=== PATIENT | female | born 1965 | race Caucasian/White ===

== ENCOUNTER → 2017-08-29 07:30 | Outpatient (CLI) | payer OTHER, SELFPAY ==
[2017-08-29 08:20] LABS: Color, Urine Yellow (Yellow); Glucose, Dipstick Normal (Normal); Ketone-Dipstick 5 mg/dl (Negative); Leukocyte Esterase-Dipstick 25 /ul (Negative); Nitrite-Dipstick Negative (Negative); Occult Blood-Urine 10 /ul (Negative); Protein-Dipstick 30 mg/dl (Negative); Specific Gravity, Urine 1.025 (1.002-1.030); Urine Bilirubin Dipstick Negative (Negative); Urine Clarity Sl. Cloudy (Clear); Urine Urobilinogen Normal (Normal)
[2017-08-29 08:30] LABS: Absolute Lymphocyte Count 1.68 X10^3/ul (0.83-4.51); Absolute Neutrophil Count 3.7 X10^3/uL (2.0-7.7); Basophil# 0.01 X10^3/uL; Basophil% 0.2 % (0-1); Eosinophil# 0.22 X10^3/uL; Eosinophils% 3.5 % (0-5); Hemoglobin 14.9 g/dl (12.0-15.0); Lymphocyte # 1.68 X10^3/ul (4.0); Lymphocyte % 27.1 % (19-41); Mean Corp Hgb Conc 33.1 g/gl (32-36); Mean Corpuscular Volume 87.7 fL (81-99); Monocyte# 0.54 X10^3/uL; Monocyte% 8.7 % (0-10); Neutrophil # 3.73 X10^3/uL (2.7-7.7); Neutrophil % 60.2 % (47-70); Platelet Count 207 K/mm3 (150-450); RBC Distribution Width CV 13.1 % (11.6-14.6); RBC Distribution Width SD 41.8 fl (35.1-43.9); Red Blood Count 5.13 M/mm3 (4.2-5.4); White Blood Count 6.2 K/mm3 (4.4-11.0)
[2017-08-29 08:35] LABS: Bacteria 2+ /hpf (None Seen); Red Blood Cells-Urine 0-5 SEEN /hpf (0-5); Squamous Epithelial Cells - UA 0-5 SEEN /hpf (5-10); White Blood Cells 0-5 SEEN /hpf (0-5)
[2017-08-29 08:36] LABS: Mucous, Urine RARE /hpf (<or=2+)
[2017-08-29 08:40] LABS: POSITIVE COUNT NO; POSITIVE DIFFERENTIAL NO; POSITIVE MORPHOLOGY NO
[2017-08-29 08:42] LABS: Microalbumin,Random Urine 27.9 mg/L (NO RANGE EST.); Microalbumin:Creatinine Ratio 10.4 mg/g CRE (<30 mg/g CRE)
[2017-08-29 08:54] LABS: Hemoglobin A1c 5.9 % (4.2-6.3)
[2017-08-29 09:00] LABS: ALB/GLOB Ratio 0.9 RATIO (0.9-2.4); AST(SGOT) 63 U/L (15-37); Alanine Aminotransfer ALT/SGPT 117 U/L (13-56); Albumin, Serum 3.8 g/dL (3.2-5.0); Alkaline Phosphatase 99 U/L (45-117); Anion Gap 7 (5-15); BUN 17 mg/dL (7-18); BUN/Creat Ratio 21.2 RATIO (10-20); Bilirubin, Direct 0.12 mg/dL (0.00-0.30); Calcium,Total 8.4 mg/dL (8.5-10.1); Chloride 104 mmol/L (98-107); Cholesterol 218 mg/dL (200); EST Glomerular Filtration Rate 79 mL/min (>60); Est Glom Filt Rate - Afr Amer 96 mL/min (>60); Globulin 4.3 g/dL (2.2-4.2); Glucose 96 mg/dL (74-106); High Density Lipoprotein 43 mg/dL; Protein, Total 8.1 g/dL (6.4-8.2); Sodium Level 137 mmol/L (136-145); Thyroid Stim Hormone (TSH) 4.32 uIU/mL (0.358-3.74); Triglycerides 202 mg/dL; Very Low Density Lipoprotein 40 mg/dL (5-40)
[2017-08-30 07:59] LABS: AFP, Tumor Marker 1.8 ng/mL (0.0-8.3)
[2017-08-30 10:38] LABS: Vitamin D,25 Hydroxy 23.3 ng/mL (19.95-100.01)
== END ==
PROVIDERS: Family Provider Internal Medicine; PCP Internal Medicine; Visit Provider Internal Medicine
DX: I10 Essential (primary) hypertension (principal); E78.2 Mixed hyperlipidemia; K76.89 Other specified diseases of liver; E55.9 Vitamin D deficiency, unspecified
CPT/HCPCS: 36415; 80053; 80061; 81001; 82043; 82105; 82248; 82306; 82570; 83036; 84443; 85025

== ENCOUNTER → 2017-08-31 08:28 | Outpatient (CLI) | payer OTHER, SELFPAY ==
[2017-09-01 06:45] LABS: Ferritin 294 ng/mL (8-252); GGTP 53 U/L (5-55)
[2017-09-01 14:07] LABS: Ceruloplasmin 29.3 mg/dL (19.0-39.0); HEPATITIS B SURFACE AG Negative (Negative); Hepatitis A AB, Total Negative (Negative); Hepatitis A IgM Antibody Negative (Negative); Hepatitis B Core AB IgM Negative (Negative); Hepatitis B Core Ab Total Negative (Negative); Hepatitis C Ab <0.1 s/co ratio (0.0-0.9)
[2017-09-01 14:14] LABS: Anti-Smooth Muscle ABS 8 Units (0-19); CMV Acute Antibody IgM < 30.0 AU/mL (0.0-29.9); Hep B Surface Antibodies Reactive (.); Lipoprotein A 33 nmol/L (<75); Transferrin 236 mg/dL (200-370)
[2017-09-03 08:46] LABS: ANTINUCLEAR ANTIBODIES DIRECT Negative (Negative); Anti-Mitochondrial AB <20.0 Units (0.0-20.0)
== END ==
PROVIDERS: Family Provider Internal Medicine; PCP Internal Medicine; Visit Provider Internal Medicine
DX: R73.02 Impaired glucose tolerance (oral) (principal); R31.29 Other microscopic hematuria; E78.2 Mixed hyperlipidemia; R94.6 Abnormal results of thyroid function studies; R74.8 Abnormal levels of other serum enzymes
CPT/HCPCS: 36415; 82390; 82728; 82977; 83516; 83695; 84466; 86038; 86645; 86704; 86705; 86706; 86708; 86709; 86803; 87340

== ENCOUNTER → 2017-12-27 15:16 | Outpatient (CLI) | payer OTHER, SELFPAY ==
[2017-12-27 15:26] LABS: Red Blood Cells-Urine 0 SEEN /hpf (0-5)
[2017-12-27 17:09] LABS: Color, Urine Yellow (Yellow); Glucose, Dipstick Normal (Normal); Ketone-Dipstick Negative (Negative); Leukocyte Esterase-Dipstick Negative /ul (Negative); Nitrite-Dipstick Negative (Negative); Occult Blood-Urine Negative /ul (Negative); Protein-Dipstick Negative (Negative); Urine Clarity Clear (Clear); Urine Urobilinogen 4 mg/dl (Normal)
[2017-12-27 17:11] LABS: Urine Bilirubin Dipstick 1 mg/dL (Negative)
[2017-12-27 17:25] LABS: White Blood Cells 0-5 SEEN /hpf (0-5)
[2017-12-27 17:26] LABS: Bacteria 3+ /hpf (None Seen); Mucous, Urine 1+ /hpf (<or=2+); Squamous Epithelial Cells - UA 0-5 SEEN /hpf (5-10)
== END ==
PROVIDERS: Family Provider Internal Medicine; PCP Internal Medicine; Visit Provider Internal Medicine
DX: R31.29 Other microscopic hematuria (principal); E78.2 Mixed hyperlipidemia; R73.02 Impaired glucose tolerance (oral); R94.6 Abnormal results of thyroid function studies; R74.8 Abnormal levels of other serum enzymes
CPT/HCPCS: 81001

== ENCOUNTER → 2017-12-28 11:22 | Outpatient (CLI) | payer OTHER, SELFPAY ==
[2017-12-28 11:34] LABS: Bacteria 0 SEEN /hpf (None Seen); Mucous, Urine 0 SEEN /hpf (<or=2+); Red Blood Cells-Urine 0 SEEN /hpf (0-5); White Blood Cells 0 SEEN /hpf (0-5)
[2017-12-28 12:36] LABS: Color, Urine Straw (Yellow); Glucose, Dipstick Normal (Normal); Ketone-Dipstick Negative (Negative); Leukocyte Esterase-Dipstick Negative /ul (Negative); Nitrite-Dipstick Negative (Negative); Occult Blood-Urine Negative /ul (Negative); Protein-Dipstick Negative (Negative); Specific Gravity, Urine 1.005 (1.002-1.030); Urine Bilirubin Dipstick Negative (Negative); Urine Clarity Clear (Clear); Urine Urobilinogen Normal (Normal); Urine pH 6.5 (5.0 - 8.0)
[2017-12-28 12:55] LABS: Squamous Epithelial Cells - UA 0-5 SEEN /hpf (5-10)
[2017-12-28 13:01] LABS: Hemoglobin A1c 5.4 % (4.2-6.3)
[2017-12-28 13:17] LABS: Cholesterol 218 mg/dL (200); Ferritin 173 ng/mL (8-252); Free T3 2.6 pg/mL (2.18-3.98); GGTP 7 U/L (5-55); High Density Lipoprotein 53 mg/dL; T4 Free Direct 0.89 ng/dL (0.76-1.46); Thyroid Stim Hormone (TSH) 2.18 uIU/mL (0.358-3.74); Triglycerides 85 mg/dL; Very Low Density Lipoprotein 17 mg/dL (5-40)
[2017-12-29 12:09] LABS: HEPATITIS B SURFACE AG Negative (Negative); Hepatitis A IgM Antibody Negative (Negative); Hepatitis B Core AB IgM Negative (Negative)
[2017-12-29 13:25] LABS: Anti-Smooth Muscle ABS 7 Units (0-19); CMV Acute Antibody IgM < 30.0 AU/mL (0.0-29.9); Hep C Antibodies <0.1 s/co ratio (0.0-0.9); Transferrin 237 mg/dL (200-370)
[2017-12-30 12:07] LABS: CHOLESTEROL TOTAL 227 mg/dL (100-199); HDL-C 54 mg/dL (>39); HDL-P TOTAL 33.4 umol/L (>=30.5); SMALL LDL-P 841 nmol/L (<=527); TRIGLYCERIDES 86 mg/dL (0-149)
[2018-01-02 12:05] LABS: ANTINUCLEAR ANTIBODIES DIRECT Negative (Negative); Anti-Mitochondrial AB <20.0 Units (0.0-20.0); LDL SIZE 21.2 nm (>20.5); LDL-C 156 mg/dL (0-99); LDL-P 1868 nmol/L (<1000); LP-IR SCORE ** 29 (<=45)
== END ==
PROVIDERS: Family Provider Internal Medicine; PCP Internal Medicine; Visit Provider Internal Medicine
DX: R31.29 Other microscopic hematuria (principal); R73.02 Impaired glucose tolerance (oral); R94.6 Abnormal results of thyroid function studies; E78.2 Mixed hyperlipidemia; R74.8 Abnormal levels of other serum enzymes
CPT/HCPCS: 36415; 80061; 80074; 81001; 82728; 82977; 83036; 83516; 83704; 84439; 84443; 84466; 84481; 86038; 86645

== ENCOUNTER → 2018-01-31 15:06 | Outpatient (CLI) | payer OTHER, SELFPAY ==
[2018-01-31 16:29] LABS: AST(SGOT) 19 U/L (15-37); Alanine Aminotransfer ALT/SGPT 26 U/L (13-56); Albumin, Serum 3.7 g/dL (3.2-5.0); Alkaline Phosphatase 101 U/L (45-117); Protein, Total 7.7 g/dL (6.4-8.2)
== END ==
PROVIDERS: Family Provider Internal Medicine; PCP Internal Medicine; Visit Provider Internal Medicine
DX: R74.8 Abnormal levels of other serum enzymes (principal); R73.02 Impaired glucose tolerance (oral)
CPT/HCPCS: 36415; 80076

== ENCOUNTER → 2018-05-08 13:22 | Outpatient (CLI) | payer OTHER, SELFPAY ==
--- NOTE | 2018-05-08 13:25 | US_ITS ---
STUDY: ULTRASOUND BREAST - RIGHT REASON FOR EXAM: Female, 53 years old. Palpable lump in the right breast. TECHNIQUE: Axial and longitudinal images of the RIGHT breast were performed with a high resolution ultrasound transducer. COMPARISON: Comparison is made with prior mammogram done earlier today. FINDINGS: RIGHT Breast: The upper inner quadrant of the right breast was examined by ultrasound. There is evidence of normal fibroglandular tissue. No solid or cystic mass lesion is seen. US/Breast Limited Unilateral IMPRESSION: Unremarkable sonogram of the upper inner quadrant of the right breast. ASSESSMENT CATEGORY: BIRADS Category 2: Benign. A letter regarding these results will be sent to the patient by the facility within 30 days. Electronically Signed: Car Pizano MD at 14:29 EDT Tel [phone], Service support ,
--- NOTE | 2018-05-08 13:25 | BI_ITS ---
MAMMOGRAPHY - BILATERAL DIAGNOSTIC REASON FOR EXAM: Female, 53 years old. 2 week history of right breast lump in the upper inner quadrant. PERTINENT HISTORY: Mother with breast cancer. TECHNIQUE: Digital bilateral breast shane (3D mammographic acquisition) in the CC and MLO projections. 2-D mediolateral oblique (MLO) and craniocaudad (CC) views of both breasts were obtained. CAD: Full Field Digital Mammography with Computer Added Detection was performed. COMPARISON: Comparison is made with prior study dated August 18, 2016 and August 11, 2015. FINDINGS: Breast Composition: The breasts are heterogeneously dense, which may obscure small masses. There are no dominant masses or suspicious calcifications. No other significant abnormalities are identified. There has been no significant change since the prior study. BI/DIAG MAMM W/CAD, BILAT IMPRESSION: Stable bilateral diagnostic mammogram. With the patient's history of a palpable abnormality in the upper inner quadrant of the right breast, correlation with ultrasound is recommended. ASSESSMENT CATEGORY: BIRADS Category 0: Incomplete. Need additional imaging evaluation. A letter regarding these results will be sent to the patient by the facility within 30 days. Approximately 10% of breast cancers are not detected by mammography. A normal mammogram should not delay biopsy of a clinically suspicious abnormality. Electronically Signed: Car Pizano MD at 14:28 EDT Tel [phone], Service support ,
== END ==
PROVIDERS: Family Provider Internal Medicine; PCP Internal Medicine; Referring Provider Nurse Practitioner; Visit Provider Nurse Practitioner
DX: N63.12 Unspecified lump in the right breast, upper inner quadrant (principal)
CPT/HCPCS: 76642; 77062; 77066; G0279

== ENCOUNTER 2018-05-17 22:21 | Emergency (ER) | payer OTHER, SELFPAY ==
[2018-05-17 22:22] VITALS: BP 152/90; PULSE 78; RESP 16; TEMP 36.8; O2SAT 98; BMI 32.5
--- NOTE | 2018-05-17 22:48 | ED.DCSUM_ITS ---
- ER Visit Summary Date of Service: 05/17/18 Chief Complaint: Lip swelling History of Present Illness: The patient is a 53 F who presents with upper lip swelling. She states that she did not feel well over the past week and had flulike symptoms. Her and her were both sick at home. Yesterday she h ad swelling on the left eye. It was the lower eyelid. She got better with Benadryl. When she woke up today it was much improved. This evening she developed swelling on the left side of the upper lip. She denies any tongue swelling. She has not short of breath. She took no new medications. She has a history of swelling in the left side of her body after a cortisone shot in the shoulder last year. Physical Examination: Vital signs reviewed. HEENT exam reveals left upper lip swelling. There is no facial droop. No facial muscle weakness. She has no tongue swelling. Her heart is regular rate and rhythm without murmurs. Lungs clear to auscultation bilaterally. Abdomen is soft and nontender. Skin exam reveals no rashes or urticaria. Neurologic exam normal. Test Results: None performed Emergency Department Course and Treatment: Patient was given Solu-Medrol and Benadryl IV. She has a history of a rebound reaction to her last allergic reaction. Therefore we will observe her for multiple hours and then reassess her. Treatment Plan: [] Disposition: Pending Impression: Lip swelling This note was generated with [employer] dictation software. It may contain incorrect words, spelling, and punctuation that were not noted in review of the chart prior to signing ED Disposition - Plan for ED Patient: Chief Complaint: Allergic Reaction Referrals: Eden Woodward DO [Primary Care Provider] -
[2018-05-17] MEDS: DiphenhydrAMINE 50 MG/ML Syringe 25 MG IV (23:08)
[2018-05-17] MEDS: MethylPREDNISolone 125 MG/2 ML Vial IV (23:09)
--- NOTE | 2018-05-17 23:57 | ED.DEP ---
ED Disposition - Plan for ED Patient: Disposition: Home or Assisted Living Chief Complaint: Allergic Reaction Instructions: ED Angioedema Referrals: Eden Woodward DO [Primary Care Provider] -
[2018-05-18 00:40] VITALS: BP 160/96; PULSE 70; RESP 16; O2SAT 96
[2018-05-18 00:42] VITALS: PULSE 79; RESP 16; O2SAT 96
--- NOTE | 2018-05-18 00:43 | ED.RN ---
pt wanted to go home, stated if she has any further issues w swelling she has an epi pen and will come back to the hospital if needed. dr grier said it was ok for her to go home.
== END 2018-05-18 00:50 | disposition home or self-care (01) ==
PROVIDERS: Emergency Provider Emergency Medicine; Family Provider Internal Medicine; PCP Internal Medicine
DX: T78.40XA Allergy, unspecified, initial encounter (principal); R22.0 Localized swelling, mass and lump, head; X58.XXXA Exposure to other specified factors, initial encounter; I10 Essential (primary) hypertension; Z79.899 Other long term (current) drug therapy
CPT/HCPCS: 96374; 96375; 99283; J7030; A4216

== ENCOUNTER → 2018-11-16 09:23 | Outpatient (CLI) | payer OTHER, SELFPAY ==
[2018-09-13 09:23] VITALS: BMI 34.3
[2018-11-16 10:06] LABS: Absolute Lymphocyte Count 2.01 X10^3/ul (0.83-4.51); Absolute Neutrophil Count 3.5 X10^3/uL (2.0-7.7); Basophil# 0.01 X10^3/uL; Basophil% 0.2 % (0-1); Eosinophil# 0.21 X10^3/uL; Eosinophils% 3.4 % (0-5); Hematocrit 42.6 % (37-47); Hemoglobin 14.3 g/dl (12.0-15.0); Lymphocyte # 2.01 X10^3/ul (4.0); Lymphocyte % 32.8 % (19-41); Mean Corp Hgb Conc 33.6 g/gl (32-36); Mean Corpuscular Hgb 29.2 pg (27.0-32.0); Mean Corpuscular Volume 87.1 fL (81-99); Mean Platelet Vol. 10.1 fl (6.2-12.0); Monocyte# 0.39 X10^3/uL; Monocyte% 6.4 % (0-10); Neutrophil # 3.49 X10^3/uL (2.7-7.7); Platelet Count 214 K/mm3 (150-450); RBC Distribution Width SD 41.6 fl (35.1-43.9); Red Blood Count 4.89 M/mm3 (4.2-5.4); White Blood Count 6.1 K/mm3 (4.4-11.0)
[2018-11-16 10:08] LABS: POSITIVE COUNT NO; POSITIVE DIFFERENTIAL NO; POSITIVE MORPHOLOGY NO
[2018-11-16 10:34] LABS: AST(SGOT) 41 U/L (15-37); Alanine Aminotransfer ALT/SGPT 85 U/L (13-56); Albumin, Serum 3.9 g/dL (3.2-5.0); Alkaline Phosphatase 88 U/L (45-117); Anion Gap 5 (5-15); BUN 12 mg/dL (7-18); BUN/Creat Ratio 18.2 RATIO (10-20); Bilirubin, Direct 0.13 mg/dL (0.00-0.30); Calcium,Total 8.8 mg/dL (8.5-10.1); Chloride 107 mmol/L (98-107); Creatinine, Serum 0.66 mg/dL (0.55-1.02); EST Glomerular Filtration Rate 98 mL/min (>60); Est Glom Filt Rate - Afr Amer 119 mL/min (>60); Globulin 3.9 g/dL (2.2-4.2); Glucose 86 mg/dL (74-106); Potassium 4.3 mmol/L (3.5-5.1); Protein, Total 7.8 g/dL (6.4-8.2); Sodium Level 141 mmol/L (136-145)
[2018-11-17 16:06] LABS: CHOLESTEROL TOTAL 226 mg/dL (100-199); HDL-C 48 mg/dL (>39); HDL-P TOTAL 33.4 umol/L (>=30.5); SMALL LDL-P 1130 nmol/L (<=527); TRIGLYCERIDES 158 mg/dL (0-149)
[2018-11-19 13:27] LABS: INSULIN RESISTANCE SCORE 63 (<=45); LDL SIZE 20.6 nm (>20.5); LDL-C 146 mg/dL (0-99); LDL-P 1931 nmol/L (<1000)
== END ==
PROVIDERS: Family Provider Internal Medicine; PCP Internal Medicine; Referring Provider Internal Medicine; Visit Provider Internal Medicine
DX: R74.8 Abnormal levels of other serum enzymes (principal); R73.09 Other abnormal glucose
CPT/HCPCS: 36415; 80053; 80061; 82248; 83704; 85025

== ENCOUNTER → 2018-12-28 14:29 | Outpatient (CLI) | payer SELFPAY ==
[2018-09-13 09:23] VITALS: BMI 34.3
--- NOTE | 2018-12-28 14:34 | CT_ITS ---
STUDY: CARDIAC CALCIUM SCORING - CT CHEST REASON FOR EXAM: Female, 53 years old. Hyperlipidemia RADIATION DOSAGE (If Supplied By Facility): CTDIvol = ( 12.19 ) mGy, DLP = ( 195.04 ) mGycm TECHNIQUE: Axial non-enhanced images were acquired through the heart for the sole purpose of measuring coronary artery calcium. Individualized dose optimization techniques were used for this CT. COMPARISON: None. FINDINGS: Visualized surrounding anatomy: Fatty liver Left Main Coronary Artery: 0 Left Anterior Descending Artery: 0 Left Circumflex Artery: 0 Right Coronary Artery: 0 Total Calcium Score: 0 CT/Limited Chest CT w/CCTA IMPRESSION: A Calcium Score of 0 places the patient in the approximate 25th percentile, based on the BERGER data calculator. Please go to: [email or web address].[email or web address] , for a description of the calculator. Electronically Signed: Antolin Silva, at 15:14 EDT Tel , Service support ,
[2018-12-28 14:43] VITALS: BP 148/93; PULSE 64; RESP 16; O2SAT 98; BMI 33.5
--- NOTE | 2018-12-31 09:05 | CA.SCORE ---
Calcium Scoring Date of Study:: 12/28/18 Coronary Calcium Scoring: High-resolution Computed Tomographic imaging of the chest was performed on [ ], with particular attention paid to the coronary arteries. Images from the examination were analyzed for the presence and extent of coronary artery calcification , using coronary calcium quantification software. The patient tolerated the procedure well and there were no complications. The results of the coronary calcification analysis are provided below. - Findings Left Main (LM): 0 Left Anterior Descending (LAD): 0 Left Circumflex (LCX): 0 Right Coronary Artery (RCA): 0 Total Agatston Score: 0 Percentile Rankin - Conclusion Calcium Scoring Interpretation: Calcium Score Interpretation 0 No identifiable atherosclerotic plaque. Very low cardiovascular disease risk. <5% chance of presence coronary artery disease A Negative Examination 1-10 Minimal Plaque burden. Significant coronary artery disease very unlikely. 11-100 Mild plaque burden. Likely mild or minimal coronary atherosclerosis. 101-400 Moderate plaque burden Moderate non-obstructive coronary artery disease highly likely. Over 400 Extensive plaque burden. High likelihood of at least one significant coronary stenosis (>50% diameter) Conclusions: Patient has a calcium score of 0 which is suggestive of very low cardiovascular disease risk (less than 5% chance of presence of significant coronary artery disease) Recommendations: Adoption and maintenance of a healthy lifestyle is recommended for all people. Tobacco use should be avoided. However note that these are general recommendations only, and as with all such matters, the personal physician should be consulted regarding recommendations appropriate for the individual
== END ==
PROVIDERS: Family Provider Internal Medicine; PCP Internal Medicine; Referring Provider Internal Medicine; Visit Provider Internal Medicine
DX: Z13.9 Encounter for screening, unspecified (principal); Z82.49 Family history of ischemic heart disease and other diseases of the circulatory system
CPT/HCPCS: 75571; 76380

== ENCOUNTER → 2019-03-04 09:57 | Outpatient (CLI) | payer OTHER, SELFPAY ==
[2018-12-28 14:43] VITALS: BMI 33.5
[2019-03-04 11:18] LABS: Hemoglobin A1c 5.5 % (4.2-6.3)
[2019-03-04 11:49] LABS: AST(SGOT) 32 U/L (15-37); Alanine Aminotransfer ALT/SGPT 77 U/L (13-56); Albumin, Serum 3.6 g/dL (3.2-5.0); Alkaline Phosphatase 91 U/L (45-117); Globulin 3.8 g/dL (2.2-4.2); Protein, Total 7.4 g/dL (6.4-8.2)
[2019-03-05 22:09] LABS: CHOLESTEROL TOTAL 162 mg/dL (100-199); HDL-C 45 mg/dL (>39); HDL-P TOTAL 38.3 umol/L (>=30.5); SMALL LDL-P 658 nmol/L (<=527); TRIGLYCERIDES 195 mg/dL (0-149)
[2019-03-06 17:01] LABS: INSULIN RESISTANCE SCORE 70 (<=45); LDL SIZE 20.1 nm (>20.5); LDL-C 78 mg/dL (0-99); LDL-P 964 nmol/L (<1000)
== END ==
PROVIDERS: Family Provider Internal Medicine; PCP Internal Medicine; Referring Provider Internal Medicine; Visit Provider Internal Medicine
DX: E78.2 Mixed hyperlipidemia (principal); R73.09 Other abnormal glucose
CPT/HCPCS: 36415; 80061; 80076; 83036; 83704

== ENCOUNTER → 2019-06-15 14:29 | Outpatient (CLI) | payer OTHER, SELFPAY ==
[2019-06-15 11:41] VITALS: BMI 33.5
[2019-06-15 14:30] LABS: Mucous, Urine 0 SEEN /hpf (<or=2+)
[2019-06-15 14:50] LABS: Color, Urine Yellow (Yellow); Glucose, Dipstick Normal (Normal); Ketone-Dipstick Negative (Negative); Leukocyte Esterase-Dipstick 25 /ul (Negative); Nitrite-Dipstick Negative (Negative); Occult Blood-Urine 250 /ul (Negative); Protein-Dipstick 100 mg/dl (Negative); Urine Bilirubin Dipstick Negative (Negative); Urine Clarity Cloudy (Clear); Urine Urobilinogen Normal (Normal)
[2019-06-15 15:02] LABS: Bacteria 2+ /hpf (None Seen); Red Blood Cells-Urine 25-50 SEEN /hpf (0-5); Squamous Epithelial Cells - UA 0-5 SEEN /hpf (5-10); White Blood Cells 0-5 SEEN /hpf (0-5); Yeast-Urine 2+ /hpf (None Seen)
== END ==
PROVIDERS: Family Provider Internal Medicine; PCP Internal Medicine; Visit Provider Physician Assistant
DX: R31.9 Hematuria, unspecified (principal)
CPT/HCPCS: 81001; 87086; 87088; 87186

== ENCOUNTER → 2019-08-14 13:02 | Outpatient (CLI) | payer OTHER, SELFPAY ==
[2019-06-15 11:41] VITALS: BMI 33.5
--- NOTE | 2019-08-14 12:50 | CYSPIN_PTH ---
PATIENT: LING LLOYD LOC: [facility] U#:[id number] AGE/SX: 60/F ROOM: RE08/14/[address]: Dr. Lashay Mcfarlane MD : 1965 BED: DIS: SPEC #: [id number] RECD: 08/14/19 13:54 STATUS: LILI REJulia #: [id number] BRUNILDA: 08/14/19 12:[address]: Lashay Mcfarlane DEPT: CYTOLOGY RECD BY: Zain Driver ENTERED: 08/14/19 13:54 SP TYPE: CYSPIN FL OTHR DR: Dr. Eden Woodward, Tissues: Urine Procedures: Pap Stain (control) Special Stain Group II Cytospin Fluid HEADER OPERATION: Not noted PRE-OP DIAGNOSIS: Gross hematuria TISSUE SUBMITTED: Urine for cytology DIAGNOSIS CYTOLOGY Urine for cytology (cytospin): A few clusters of atypical urothelial cells noted, favor reactive. Numerous organisms consistent with bacteria noted. Acute inflammation. SJ:shanell 08/15/19 COMMENT Correlation with clinical findings and appropriate follow up are necessary. Case has been reviewed in consultation with Dr. Esquivel who concurs with the above diagnosis. IDC:AM CYTOLOGY STUDY Slides are reviewed. CYTOLOGY GROSS Received is 50 ml of gold cloudy fluid labeled with the patient's name and and designated per the requisition as urine. Submitted for cytology preparation. / shanell 08/14/19 TC:2 CPT: 01730
[2019-08-14 13:19] LABS: Cytology, Body Fluid / CSF SEE PATHOLOGY REPORT
== END ==
PROVIDERS: PCP Internal Medicine; Referring Provider Urology; Visit Provider Urology
DX: R31.0 Gross hematuria (principal)
CPT/HCPCS: 88108; 88313

== ENCOUNTER → 2019-08-19 13:50 | Outpatient (CLI) | payer OTHER, SELFPAY ==
[2019-06-15 11:41] VITALS: BMI 33.5
--- NOTE | 2019-08-19 13:52 | CT_ITS ---
STUDY: CT ABDOMEN AND PELVIS WITH AND WITHOUT CONTRAST REASON FOR EXAM: Female, 54 years old. GROSS HEMATURIA, SCOPE AND CAUTERIZATION OF BLADDER VESSELS IN DR OFFICE TODAY RADIATION DOSAGE (If Supplied By Facility): CTDIvol = ( 19.75 ) mGy, DLP = ( 3337.63 ) mGycm TECHNIQUE: Transaxial images were obtained from the dome of the diaphragm to the symphysis pubis without oral contrast. IV 100mL Isovue-300 was administered. Sagittal and coronal images were reconstructed. Individualized dose optimization techniques were used for this CT. COMPARISON: None. FINDINGS: The visualized lung bases are unremarkable. The visualized portions of the heart are within normal limits. There is decreased attenuation of the liver consistent with steatosis. Normal gallbladder and extrahepatic biliary system. Normal spleen. Normal pancreas. Normal bilateral adrenal glands. Normal right kidney. Duplicated right renal collecting system. Normal left kidney. Normal visualized stomach. Normal small intestine. Normal colon. The appendix is visualized and appears normal. Normal abdominal aorta. Normal inferior vena cava. Normal retroperitoneum. Normal urinary bladder. There is a small umbilical hernia containing fat. Normal osseous structures. CT/CT Abd/Pelvis W/WO Contrast IMPRESSION: Normal unenhanced and enhanced CT of the abdomen and pelvis. No CT evident etiology of hematuria. Duplicated right renal collecting system without ureteral dilatation. Electronically Signed: Greg Ventura MD at 7:54 EST Tel , Service support ,
== END ==
PROVIDERS: PCP Internal Medicine; Referring Provider Urology; Visit Provider Urology
DX: R31.0 Gross hematuria (principal)
CPT/HCPCS: 74178; Q9967

== ENCOUNTER → 2019-08-20 10:36 | Outpatient (CLI) | payer OTHER, SELFPAY ==
[2019-06-15 11:41] VITALS: BMI 33.5
[2019-08-20 13:37] LABS: Hemoglobin A1c 5.7 % (4.2-6.3)
== END ==
PROVIDERS: PCP Internal Medicine; Referring Provider Internal Medicine; Visit Provider Internal Medicine
DX: R73.09 Other abnormal glucose (principal); E78.2 Mixed hyperlipidemia; R35.0 Frequency of micturition
CPT/HCPCS: 83036; 87086

== ENCOUNTER → 2019-09-05 16:21 | Outpatient (CLI) | payer OTHER, SELFPAY ==
[2019-08-21 17:24] VITALS: BMI 33.5
== END ==
PROVIDERS: PCP Internal Medicine; Visit Provider Urology
DX: R30.0 Dysuria (principal)
CPT/HCPCS: 87086

== ENCOUNTER 2019-09-10 09:27 | Day surgery (SDC) | payer OTHER, SELFPAY ==
[2019-06-15 11:41] VITALS: BMI 33.5
[2019-08-21 17:24] VITALS: BMI 33.5
[2019-09-10] VITALS (7 sets, daily range): BP systolic 122–140; BP diastolic 79–95; PULSE 61–78; RESP 15–16; TEMP 36.3–36.5; O2SAT 92–99; BMI 35.3
[2019-09-10] MEDS: Lactated Ringers 1,000 ML 100 ML IV (10:00)
--- NOTE | 2019-09-10 10:07 | PCM.OPRPT ---
Problem List (1) Gross hematuria Status: Acute (2) Erythematous bladder mucosa Status: Acute Report of Operation Date of Procedure: 09/10/19 Pre-Operative Diagnosis: gross hematuria, erythematous bladder mucosa Post-Operative Diagnosis: same Surgery/Procedure Performed:: cystoscopy Description of Surgical Findings:: erythema resolved, normal mucosa Type of Anesthesia:: MAC Specimen's removed: none Description of Procedure: The patient is a 54-year-old female who presented to the office for evaluation of gross hematuria. She was evaluated with a CT urogram and office cystoscopy as well as cytology. The office cystoscopy revealed several erythematous lesions consistent with petechiae. The decision was made to take her to the operating room for biopsy for further evaluation. Informed consent was obtained. Patient was taken to the operating room and placed on the operating room table. Anesthesia monitored the head, neck, airway, IV access and vital signs throughout the case. Once anesthesia was appropriately administered the patient was placed into dorsal lithotomy position was prepped and draped in usual sterile fashion. At this time the cystoscope was inserted through the urethra under direct visualization and into the urinary bladder. The bladder mucosa in its entirety was affected. There were no lesions identified at this time. The bladder mucosa appeared 100% normal. The patient's bladder was emptied and the case was terminated. She was taken to the recovery room in good condition. There were no complications during this procedure. Grafts/Implants Used: none - Complications none - Admit VTE Documentation VTE Present on Admission: Yes VTE Mechan Device Prophylaxis: SCD's VTE Pharm Prophylaxis ordered?: No Reason prophylaxis not ordered:: Treatment Not Indicated
--- NOTE | 2019-09-10 10:11 | DCINST_ITS ---
Discharge Diet: No Restrictions Discharge Activity: Return to Normal Activity, May not drive while taking narcotic pain medications., May Shower May resume sexual activity in: 1 week Call your doctor if you observe: Fever of 101 or Higher, Inability to urinate, Inability to have a bowel movement, Calf discomfort, Uncontrolled pain Allergies/Adverse Reactions: Allergies bupivacaine Allergy (Verified 09/10/19 09:41) Anaphylaxis KENALOG VS BUPIVACAINE; GIVEN BOTH MEDS CONCURRENTLY, AND HAD ANAPHYLACTIC REACTION. Sulfa (Sulfonamide Antibiotics) Allergy (Verified 09/10/19 09:41) TOUNGE AND LIP SWELLING triamcinolone [From Kenalog] Allergy (Verified 09/10/19 09:41) Anaphylaxis KENALOG VS BUPIVACAINE; GIVEN BOTH MEDS CONCURRENTLY, AND HAD ANAPHYLACTIC REACTION. Medications to take at Discharge Aspirin E.C. [Ecotrin] 81 mg PO DAILY@0800 09/03/19 Atenolol [Tenormin] 50 mg PO DAILY 09/03/19 Citalopram [Celexa] 20 mg PO DAILY 09/03/19 Metformin HCl 500 mg PO DAILY 09/03/19 Primary Care Physician: Eden Woodward DO [Primary Care Provider] - Test Results: Test results from this visit will be discussed in further detail at your follow- up appointment, if applicable. Please Follow Up With: Lashay Mcfarlane MD When: call for appt. Proposed Discharge Date: 09/10/19
[2019-09-10] MEDS: Cefazolin 2 GM in 0.9% Normal Saline 100 ML IV (10:38)
== END 2019-09-10 11:50 | disposition home or self-care (01) ==
LOC: SDC 09:28 → AC 09:29
PROVIDERS: PCP Internal Medicine; Referring Provider Urology; Visit Provider Urology
PROC: 0TBB8ZX Excision of Bladder, Via Natural or Artificial Opening Endoscopic, Diagnostic (ICD-10-PCS; CPT 52000; principal; 2019-09-10 10:50)
DX: N39.46 Mixed incontinence (principal); N95.2 Postmenopausal atrophic vaginitis; N39.0 Urinary tract infection, site not specified; R31.0 Gross hematuria; I10 Essential (primary) hypertension; E78.5 Hyperlipidemia, unspecified; F41.9 Anxiety disorder, unspecified; L41.9 Parapsoriasis, unspecified; G47.30 Sleep apnea, unspecified; Z78.0 Asymptomatic menopausal state; Z79.84 Long term (current) use of oral hypoglycemic drugs; Z79.82 Long term (current) use of aspirin; Z79.899 Other long term (current) drug therapy
CPT/HCPCS: 52000; J7120; J2405

== ENCOUNTER → 2019-12-13 09:11 | Outpatient (CLI) | payer OTHER, SELFPAY ==
[2019-09-10 09:49] VITALS: BMI 35.3
[2019-12-13 10:34] LABS: AST(SGOT) 32 U/L (15-37); Alanine Aminotransfer ALT/SGPT 69 U/L (13-56); Albumin, Serum 3.6 g/dL (3.2-5.0); Alkaline Phosphatase 94 U/L (45-117); Bilirubin, Direct 0.12 mg/dL (0.00-0.30); Globulin 4.2 g/dL (2.2-4.2); Protein, Total 7.8 g/dL (6.4-8.2)
== END ==
PROVIDERS: PCP Internal Medicine; Referring Provider Internal Medicine; Visit Provider Internal Medicine
DX: R94.5 Abnormal results of liver function studies (principal)
CPT/HCPCS: 36415; 80076

== ENCOUNTER → 2019-12-25 09:58 | Outpatient (CLI) | payer OTHER, SELFPAY ==
[2019-09-10 09:49] VITALS: BMI 35.3
[2019-12-25 11:22] LABS: Hemoglobin A1c 5.8 % (3.8-5.6)
== END ==
PROVIDERS: PCP Internal Medicine; Referring Provider Internal Medicine; Visit Provider Internal Medicine
DX: R73.09 Other abnormal glucose (principal); E78.2 Mixed hyperlipidemia; E55.9 Vitamin D deficiency, unspecified
CPT/HCPCS: 36415; 83036

== ENCOUNTER → 2020-03-17 08:44 | Outpatient (CLI) | payer OTHER, SELFPAY ==
[2019-09-10 09:49] VITALS: BMI 35.3
[2020-03-07 11:31] VITALS: BMI 35.3
--- NOTE | 2020-03-17 08:50 | BI_ITS ---
MAMMOGRAPHY - BILATERAL SCREENING REASON FOR EXAM: Female, 54 years old. Routine annual screening examination. PERTINENT HISTORY: Mother with breast cancer. TECHNIQUE: Digital bilateral breast nhung (3D mammographic acquisition) in the CC and MLO projections. 2-D mediolateral oblique (MLO) and craniocaudad (CC) views of both breasts were obtained. CAD: Full Field Digital Mammography with Computer Added Detection was performed. COMPARISON: Comparison is made with prior study dated 05/08/2018 and 08/18/2016. FINDINGS: Breast Composition: The breasts are heterogeneously dense, which may obscure small masses. There are no dominant masses or suspicious calcifications. No other significant abnormalities are identified. BI/SCREEN MAMM (CAD) W/NHUNG BILAT IMPRESSION: Stable bilateral screening mammogram. Yearly follow-up mammogram recommended. (A) ASSESSMENT CATEGORY: BIRADS Category 1: Negative. A letter regarding these results will be sent to the patient by the facility within 30 days. Approximately 10% of breast cancers are not detected by mammography. A normal mammogram should not delay biopsy of a clinically suspicious abnormality. [id number] Electronically Signed: Car Pizano, at 10:37 EDT , Service support ,
== END ==
PROVIDERS: PCP Internal Medicine; Visit Provider Internal Medicine
DX: Z12.31 Encounter for screening mammogram for malignant neoplasm of breast (principal)
CPT/HCPCS: 77063; 77067

== ENCOUNTER → 2020-03-19 06:38 | Outpatient (CLI) | payer OTHER, SELFPAY ==
[2019-09-10 09:49] VITALS: BMI 35.3
[2020-03-07 11:31] VITALS: BMI 35.3
[2020-03-19 07:40] LABS: Absolute Lymphocyte Count 2.16 X10^3/uL (0.83-4.51); Absolute Neutrophil Count 5.2 X10^3/uL (2.0-7.7); Basophil# 0.02 X10^3/uL; Basophil% 0.2 % (0-1); Eosinophils% 2.4 % (0-5); Hematocrit 44.7 % (37-47); Hemoglobin 14.4 g/dL (12.0-15.0); Lymphocyte # 2.16 X10^3/ul (4.0); Lymphocyte % 26.3 % (19-41); Mean Corp Hgb Conc 32.2 g/dL (32-36); Mean Corpuscular Hgb 28.5 pg (27.0-32.0); Mean Corpuscular Volume 88.5 fL (81-99); Monocyte# 0.61 X10^3/uL; Monocyte% 7.4 % (0-10); NRBC Flagged by Analyzer 0 % (0-5); Neutrophil # 5.18 X10^3/uL (2.7-7.7); Neutrophil % 63.3 % (47-70); Platelet Count 249 K/mm3 (150-450); RBC Distribution Width CV 13.1 % (11.6-14.6); RBC Distribution Width SD 41.8 fl (35.1-43.9); Red Blood Count 5.05 M/mm3 (4.2-5.4); White Blood Count 8.2 K/mm3 (4.4-11.0)
[2020-03-19 08:25] LABS: Vitamin D,25 Hydroxy 53.9 ng/mL
[2020-03-19 08:27] LABS: ALB/GLOB Ratio 0.9 RATIO (0.9-2.4); AST(SGOT) 38 U/L (15-37); Alanine Aminotransfer ALT/SGPT 67 U/L (13-56); Albumin, Serum 3.5 g/dL (3.2-5.0); Alkaline Phosphatase 101 U/L (45-117); Anion Gap 6 (5-15); BUN 15 mg/dL (7-18); BUN/Creat Ratio 20.4 RATIO (10-20); Calcium,Total 8.6 mg/dL (8.5-10.1); Chloride 106 mmol/L (98-107); Cholesterol 208 mg/dL (200); Creatinine, Serum 0.74 mg/dL (0.55-1.02); EST Glomerular Filtration Rate 87 mL/min (>60); Est Glom Filt Rate - Afr Amer 105 mL/min (>60); Globulin 4.1 g/dL (2.2-4.2); Glucose 94 mg/dL (74-106); High Density Lipoprotein 36 mg/dL; Protein, Total 7.6 g/dL (6.4-8.2); Sodium Level 138 mmol/L (136-145); Thyroid Stim Hormone (TSH) 3.23 uIU/mL (0.358-3.74); Triglycerides 285 mg/dL; Very Low Density Lipoprotein 57 mg/dL (5-40)
[2020-03-19 08:49] LABS: Hemoglobin A1c 5.6 % (3.8-5.6)
[2020-03-19 12:45] LABS: Microalbumin,Random Urine 9.3 mg/L (NO RANGE EST.); Microalbumin:Creatinine Ratio 5.7 mg/g CRE (<30 mg/g CRE)
== END ==
PROVIDERS: PCP Internal Medicine; Referring Provider Internal Medicine; Visit Provider Internal Medicine
DX: E78.2 Mixed hyperlipidemia (principal); R73.09 Other abnormal glucose; E55.9 Vitamin D deficiency, unspecified
CPT/HCPCS: 36415; 80053; 80061; 82043; 82306; 82570; 83036; 84443; 85025

== ENCOUNTER → 2020-04-10 11:06 | Outpatient (CLI) | payer OTHER, SELFPAY ==
[2020-03-07 11:31] VITALS: BMI 35.3
[2020-04-13 21:12] LABS: V-Zoster IgG (Immunity) > 4000 index (Immune >165); V-Zoster Virus Acute IgM < 0.91 index (0.00-0.90)
== END ==
PROVIDERS: PCP Internal Medicine; Referring Provider Physician Assistant; Visit Provider Physician Assistant
DX: L40.0 Psoriasis vulgaris (principal); L08.9 Local infection of the skin and subcutaneous tissue, unspecified
CPT/HCPCS: 36415; 86787

== ENCOUNTER 2020-06-21 19:30 | Emergency (ER) | payer OTHER, SELFPAY ==
[2020-03-07 11:31] VITALS: BMI 35.3
[2020-06-21 19:31] VITALS: BP 139/84; PULSE 85; RESP 18; TEMP 35.2; O2SAT 93; BMI 35.2
[2020-06-21 19:47] VITALS: BP 139/86; PULSE 77; RESP 20; TEMP 36.1; O2SAT 92
--- NOTE | 2020-06-21 20:21 | CT_ITS ---
STUDY: CTA CHEST REASON FOR EXAM: Female, 55 years old. COVID X 1 WEEK, LIGHTHEADED NOW, FEVER, DYSPNEA, HX HTN RADIATION DOSAGE (If Supplied By Facility): CTDIvol = ( 12.33 ) mGy, DLP = ( 526.59 ) mGycm TECHNIQUE: The examination was performed with the intravenous administration of 100 ML ISOVUE 370. Post-processing of the angiographic images was performed, with multiplanar reformation and 3D reconstruction. Individualized dose optimization techniques were used for this CT. COMPARISON: None. FINDINGS: Normal enhancement of the main pulmonary artery and right and left pulmonary arteries. Normal enhancement of the bilateral peripheral pulmonary arteries. There is no demonstrated pulmonary embolism. Normal thoracic aorta and visualized great vessels. There is no demonstrated aortic dissection. Normal heart and pericardium. Normal mediastinum. Normal hilar regions. Normal visualized trachea and bronchi. The lungs are well expanded. Bilateral patchy infiltrates.. Normal pleura. Normal chest wall structures. Normal osseous structures. Fatty liver. CT/CTA Chest W/WO Contrast IMPRESSION: No demonstrated pulmonary embolism or arterial dissection. Bilateral patchy infiltrates. Fatty liver. Electronically Signed: Gavino Bergman DO at 22:38 EST Tel [phone], Service support ,
--- NOTE | 2020-06-21 20:39 | ED.VIS.GEN ---
History of Present Illness Informant: Patient Narrative: 55-year-old female states that she was diagnosed with COVID-19 on Monday. She states that she has gradually worsened. She now notes a cough. Continued fevers and myalgias. She is worried about dehydration. She notes that she is only urinated twice today. She notes muscle cramps. No diarrhea. She has a history of hypertension and states she is prediabetic. <Oleg Mendoza - Last Filed: 06/21/20 21:58> <Rubén Garcia - Last Filed: 06/21/20 23:10> Chief Complaint: Cough Past Medical History Prior records reviewed: Yes Surgical History: noncontributory Lives: With Family Smoking Status: Never smoker Drugs: None - Family History Maternal Family History: Reports: No pertinent history <Oleg Mendoza - Last Filed: 06/21/20 21:58> <Rubén Garcia - Last Filed: 06/21/20 23:10> - Allergies and Home Meds Allergies/Adverse Reactions: Allergies bupivacaine Allergy (Verified 06/21/20 19:31) Anaphylaxis KENALOG VS BUPIVACAINE; GIVEN BOTH MEDS CONCURRENTLY, AND HAD ANAPHYLACTIC REACTION. cortisone Allergy (Verified 06/21/20 19:31) hives ended up in ICU after injection Sulfa (Sulfonamide Antibiotics) Allergy (Verified 06/21/20 19:31) TOUNGE AND LIP SWELLING triamcinolone [From Kenalog] Allergy (Verified 06/21/20 19:31) Anaphylaxis KENALOG VS BUPIVACAINE; GIVEN BOTH MEDS CONCURRENTLY, AND HAD ANAPHYLACTIC REACTION. Primary Care Physician: Eden Woodward DO [Primary Care Provider] - As Needed Review of Systems General: Reports: Chills, Fever, Malaise. Denies: Sweats Eyes: Denies: Visual changes - bilaterally, Diplopia ENT: Denies: Rhinorrhea, Sore throat Cardiovascular: Denies: Chest pain, Palpitations Respiratory: Reports: Dyspnea, Cough, Dyspnea on exertion Gastrointestinal: Denies: Abdominal pain, Nausea, Vomiting, Diarrhea, Melena, Hematochezia Genitourinary: Reports: - - Decreased urinary output. Denies: Dysuria, Hematuria, Frequency Musculoskeletal: Reports: Myalgias, Arthralgias. Denies: Back pain, Extremity Pain Skin: Denies: Rash, Wounds Neurological: Reports: Headache. Denies: Weakness, Numbness <Oleg Mendoza - Last Filed: 06/21/20 21:58> Physical Exam Vital Signs/Narrative: Vital Signs Temp Pulse Resp BP Pulse Ox 06/21/20 19:47 97.0 F L 77 20 H 139/86 H 92 06/21/20 19:31 95.3 F L 85 18 139/84 H 93 Inital Vital Signs reviewed: Yes General: Well nourished, Well developed, No Acute Distress Head: Normocephalic, Atraumatic Eyes: Perrl, EOMI ENT: Moist mucous membranes, No rhinorrhea Neck: Supple, Nontender Cardiovascular: Regular rate, Regular rhythm, No murmurs Respiratory: No distress, CTA bilaterally, Chest nontender Abdomen: Soft, Nontender, Nondistended, Normal bowel sounds Back: Nontender, Normal Inspection Extremities: Nontender, No edema Skin: Normal color, No rash Neurological: Alert, Oriented x3, Cranial nerves II-XII grossly intact, Normal Strength, Normal Sensation Psychological: Normal affect, Normal Mood <Oleg Mendoza - Last Filed: 06/21/20 21:58> Vital Signs/Narrative: Vital Signs Temp Pulse Resp BP Pulse Ox 06/21/20 21:56 139/73 H 06/21/20 21:55 75 16 92 06/21/20 19:47 97.0 F L 77 20 H 139/86 H 92 06/21/20 19:31 95.3 F L 85 18 139/84 H 93 <Rubén Garcia - Last Filed: 06/21/20 23:10> Diagnostic/Tx/Re-eval Laboratory Last Values WBC 3.6 K/mm3 (4.4-11.0) L 06/21/20 20:45 RBC 4.96 M/mm3 (4.2-5.4) 06/21/20 20:45 Hgb 14.6 g/dL (12.0-15.0) 06/21/20 20:45 Hct 43.6 % (37-47) 06/21/20 20:45 MCV 87.9 fL (81-99) 06/21/20 20:45 MCH 29.4 pg (27.0-32.0) 06/21/20 20:45 MCHC 33.5 g/dL (32-36) 06/21/20 20:45 RDW Std Deviation 41.5 fl (35.1-43.9) 06/21/20 20:45 RDW Coeff of Tali 13.0 % (11.6-14.6) 06/21/20 20:45 Plt Count 126 K/mm3 (150-450) L 06/21/20 20:45 MPV 10.4 fl (6.2-12.0) 06/21/20 20:45 Immature Gran % (Auto) 0.300 % (0.0-0.9) 06/21/20 20:45 Neut % (Auto) 69.1 % (47-70) 06/21/20 20:45 Lymph % (Auto) 21.2 % (19-41) 06/21/20 20:45 Hardee % (Auto) 9.4 % (0-10) 06/21/20 20:45 Eos % (Auto) 0.0 % (0-5) 06/21/20 20:45 Baso % (Auto) 0.0 % (0-1) 06/21/20 20:45 Absolute Neuts (auto) 2.5 X10^3/uL (2.0-7.7) 06/21/20 20:45 Absolute Lymphs (auto) 0.77 X10^3/uL (0.83-4.51) L 06/21/20 20:45 Nucleated RBC % 0 % (0-5) 06/21/20 20:45 Fibrinogen 493 mg/dl (203-444) H 06/21/20 20:45 Sodium 134 mmol/L (136-145) L 06/21/20 20:45 Potassium 3.9 mmol/L (3.5-5.1) 06/21/20 20:45 Chloride 101 mmol/L (98-107) 06/21/20 20:45 Carbon Dioxide 28.0 mmol/L (21.0-32.0) 06/21/20 20:45 Anion Gap 5 (5-15) 06/21/20 20:45 BUN 9 mg/dL (7-18) 06/21/20 20:45 Creatinine 0.77 mg/dL (0.55-1.02) 06/21/20 20:45 Estim Creat Clear Calc 69.61 ml/min 06/21/20 20:45 Est GFR (MDRD) Af Amer 100 mL/min (>60) 06/21/20 20:45 Est GFR (MDRD) Non-Af 82 mL/min (>60) 06/21/20 20:45 BUN/Creatinine Ratio 11.7 RATIO (10-20) 06/21/20 20:45 Glucose 98 mg/dL (74-106) 06/21/20 20:45 Lactic Acid 0.9 mmol/L (0.4-1.9) 06/21/20 20:45 Calcium 8.5 mg/dL (8.5-10.1) 06/21/20 20:45 Total Bilirubin 0.30 mg/dL (0.20-1.00) 06/21/20 20:45 AST 130 U/L (15-37) H 06/21/20 20:45 ALT 150 U/L (13-56) H 06/21/20 20:45 Alkaline Phosphatase 89 U/L (45-117) 06/21/20 20:45 Lactate Dehydrogenase 331 U/L (84-246) H 06/21/20 20:45 Troponin I < 0.015 ng/mL (<0.045) 06/21/20 20:45 C-React Prot Ext Range 17.70 mg/L (0.0-3.0) H 06/21/20 20:45 Total Protein 7.5 g/dL (6.4-8.2) 06/21/20 20:45 Albumin 3.5 g/dL (3.2-5.0) 06/21/20 20:45 Globulin 4.0 g/dL (2.2-4.2) 06/21/20 20:45 Albumin/Globulin Ratio 0.9 RATIO (0.9-2.4) 06/21/20 20:45 Procalcitonin 0.12 ng/mL (0.00-0.09) H 06/21/20 20:45 - Medical Decision Making Patient received IV fluids and Toradol. Her labs are reassuring. CRP is mildly elevated at 17. Fibrinogen mildly elevated. She has a mild leukopenia. CTA of the chest shows a Covid pattern. The official report is still pending. This will be checked but I believe that she will be able to be discharged home. She appears to be qualified for the monoclonal antibody infusion referral we will do that. Patient is comfortable with her plan return if worsening or concerns <Oleg Mendoza - Last Filed: 06/21/20 21:58> - Medical Decision Making Patient checked out to me by the initial physician Dr. Santo Mendoza. Radiologist read the CT of the chest as bilateral patchy infiltrates but no PE. I reviewed the film myself. Patient was also given a dose of Decadron here and placed on control on 6 mg daily at home for the next 5 days. She is going to follow-up with the monoclonal antibody therapy here at the hospital. Discussed test results with the patient. On repeat exam at 20 3:04 PM she is doing well be discharged to home. Impression: Covid pneumonitis <Rubén Garcia - Last Filed: 06/21/20 23:10> ED Disposition <Oleg Mendoza - Last Filed: 06/21/20 21:58> <Rubén Garcia - Last Filed: 06/21/20 23:10> - Plan for ED Patient: Disposition: Home or Assisted Living Diagnosis: COVID-19 Instructions: ED - COVID Monoclonal AB Infusion ..., Coronavirus Disease 2019 (COVID-19): Overview Referrals: Eden Woodward, [Primary Care Provider] - As Needed
[2020-06-21] MEDS: 0.9% Normal Saline 1,000 ML 999 ML IV (20:52)
[2020-06-21] MEDS: Ketorolac 30 MG/ML Syringe IV (20:52)
[2020-06-21 21:17] LABS: Absolute Lymphocyte Count 0.77 X10^3/uL (0.83-4.51); Absolute Neutrophil Count 2.5 X10^3/uL (2.0-7.7); Hematocrit 43.6 % (37-47); Hemoglobin 14.6 g/dL (12.0-15.0); Lymphocyte # 0.77 X10^3/ul (4.0); Lymphocyte % 21.2 % (19-41); Mean Corp Hgb Conc 33.5 g/dL (32-36); Mean Corpuscular Hgb 29.4 pg (27.0-32.0); Mean Corpuscular Volume 87.9 fL (81-99); Mean Platelet Vol. 10.4 fl (6.2-12.0); Monocyte# 0.34 X10^3/uL; Monocyte% 9.4 % (0-10); NRBC Flagged by Analyzer 0 % (0-5); Neutrophil # 2.51 X10^3/uL (2.7-7.7); Neutrophil % 69.1 % (47-70); Platelet Count 126 K/mm3 (150-450); RBC Distribution Width SD 41.5 fl (35.1-43.9); Red Blood Count 4.96 M/mm3 (4.2-5.4); White Blood Count 3.6 K/mm3 (4.4-11.0)
[2020-06-21 21:25] LABS: Fibrinogen 493 mg/dl (203-444)
[2020-06-21 21:26] LABS: ALB/GLOB Ratio 0.9 RATIO (0.9-2.4); AST(SGOT) 130 U/L (15-37); Alanine Aminotransfer ALT/SGPT 150 U/L (13-56); Albumin, Serum 3.5 g/dL (3.2-5.0); Alkaline Phosphatase 89 U/L (45-117); Anion Gap 5 (5-15); BUN 9 mg/dL (7-18); BUN/Creat Ratio 11.7 RATIO (10-20); Calcium,Total 8.5 mg/dL (8.5-10.1); Chloride 101 mmol/L (98-107); Creatinine, Serum 0.77 mg/dL (0.55-1.02); EST Glomerular Filtration Rate 82 mL/min (>60); Est Glom Filt Rate - Afr Amer 100 mL/min (>60); Estimated Creatinine Clearance 69.61 ml/min; Glucose 98 mg/dL (74-106); LDH 331 U/L (84-246); Potassium 3.9 mmol/L (3.5-5.1); Protein, Total 7.5 g/dL (6.4-8.2); Sodium Level 134 mmol/L (136-145)
[2020-06-21 21:29] LABS: Lactic Acid 0.9 mmol/L (0.4-1.9); Procalcitonin 0.12 ng/mL (0.00-0.09)
[2020-06-21 21:55] VITALS: PULSE 75; RESP 16; O2SAT 92
[2020-06-21 21:56] VITALS: BP 139/73
--- NOTE | 2020-06-21 23:10 | ED.DEP ---
ED Disposition - Plan for ED Patient: Disposition: Home or Assisted Living Diagnosis: COVID-19 Instructions: ED - COVID Monoclonal AB Infusion ..., Coronavirus Disease 2019 (COVID-19): Overview Prescriptions: Dexamethasone [Decadron] 6 mg PO DAILY 5 Days tab Prescription Printed Referrals: Eden Woodward DO [Primary Care Provider] - As Needed
[2020-06-21] MEDS: dexAMETHasone 4 MG Tablet 6 MG PO (23:30)
[2020-06-21 23:31] VITALS: BP 133/75; PULSE 65; RESP 16; O2SAT 92
== END 2020-06-21 23:33 | disposition home or self-care (01) ==
PROVIDERS: Emergency Provider Emergency Medicine; PCP Internal Medicine
DX: U07.1 COVID-19 (principal); J12.89 Other viral pneumonia; R25.2 Cramp and spasm; I10 Essential (primary) hypertension; R73.03 Prediabetes; Z79.899 Other long term (current) drug therapy
CPT/HCPCS: 71275; 80053; 83605; 83615; 84145; 84484; 85025; 85384; 86140; 87040; 96361; 96374; 99285; J7030; Q9967; A4216

== ENCOUNTER 2020-06-22 12:37 | Outpatient (CLI) | payer OTHER, SELFPAY ==
[2020-06-22 12:56] VITALS: BP 130/77; PULSE 68; RESP 18; TEMP 36.8; O2SAT 95
[2020-06-22] MEDS: 0.9% Saline Lock 10 ML Syringe IV (13:24)
[2020-06-22 13:45] VITALS: BP 119/73; PULSE 66; RESP 18; O2SAT 95
[2020-06-22 14:15] VITALS: BP 122/70; PULSE 66; RESP 18; TEMP 36.9; O2SAT 95
[2020-06-22 14:45] VITALS: BP 122/69; PULSE 65; RESP 18; O2SAT 95
[2020-06-22 15:10] VITALS: BP 126/68; PULSE 64; RESP 18; O2SAT 95
--- NOTE | 2020-06-22 16:00 | NURSING ---
Dry persistent cough for 10 minutes directly after infusion completed. Pt stated it felt like a tickle. Marquita Maldonado updated on pt status, no orders received.
[2020-06-22 16:04] VITALS: BP 129/77; PULSE 65; RESP 18; TEMP 36.9; O2SAT 98
== END 2020-06-22 16:15 | disposition home or self-care (01) ==
LOC: MS2OUT 12:37
PROVIDERS: PCP Internal Medicine; Visit Provider Nurse Practitioner Acute Care
DX: U07.1 COVID-19 (principal)
CPT/HCPCS: 96365; J7050; M0239; Q0239

== ENCOUNTER → 2020-06-30 11:39 | Outpatient (CLI) | payer OTHER, SELFPAY ==
[2020-06-26 12:43] VITALS: BMI 35.2
[2020-06-30 12:51] LABS: Erythrocyte Sedimentation Rate 10 mm/hr (0-30)
[2020-06-30 12:57] LABS: Absolute Lymphocyte Count 1.29 X10^3/uL (0.83-4.51); Absolute Neutrophil Count 5.4 X10^3/uL (2.0-7.7); Basophil# 0.04 X10^3/uL; Basophil% 0.5 % (0-1); Eosinophil# 0.39 X10^3/uL; Hematocrit 47.2 % (37-47); Hemoglobin 15.9 g/dL (12.0-15.0); Lymphocyte # 1.29 X10^3/ul (4.0); Lymphocyte % 16.4 % (19-41); Mean Corp Hgb Conc 33.7 g/dL (32-36); Mean Corpuscular Hgb 29.2 pg (27.0-32.0); Mean Corpuscular Volume 86.6 fL (81-99); Mean Platelet Vol. 9.7 fl (6.2-12.0); Monocyte# 0.61 X10^3/uL; Monocyte% 7.8 % (0-10); NRBC Flagged by Analyzer 0 % (0-5); Neutrophil # 5.44 X10^3/uL (2.7-7.7); Platelet Count 332 K/mm3 (150-450); RBC Distribution Width CV 12.7 % (11.6-14.6); RBC Distribution Width SD 39.7 fl (35.1-43.9); Red Blood Count 5.45 M/mm3 (4.2-5.4); White Blood Count 7.9 K/mm3 (4.4-11.0)
[2020-06-30 13:10] LABS: ALB/GLOB Ratio 0.8 RATIO (0.9-2.4); AST(SGOT) 25 U/L (15-37); Alanine Aminotransfer ALT/SGPT 86 U/L (13-56); Albumin, Serum 3.1 g/dL (3.2-5.0); Alkaline Phosphatase 83 U/L (45-117); Anion Gap 5 (5-15); BUN 14 mg/dL (7-18); BUN/Creat Ratio 20.5 RATIO (10-20); Calcium,Total 8.5 mg/dL (8.5-10.1); Chloride 105 mmol/L (98-107); Creatinine, Serum 0.68 mg/dL (0.55-1.02); EST Glomerular Filtration Rate 94 mL/min (>60); Est Glom Filt Rate - Afr Amer 114 mL/min (>60); Globulin 3.8 g/dL (2.2-4.2); Glucose 87 mg/dL (74-106); Potassium 3.7 mmol/L (3.5-5.1); Protein, Total 6.9 g/dL (6.4-8.2); Sodium Level 138 mmol/L (136-145)
[2020-06-30 13:16] LABS: Procalcitonin 0.05 ng/mL (0.00-0.09)
[2020-06-30 13:30] LABS: Color, Urine Yellow (Yellow); Glucose, Dipstick Normal (Normal); Ketone-Dipstick Negative (Negative); Leukocyte Esterase-Dipstick 100 /ul (Negative); Nitrite-Dipstick Negative (Negative); Occult Blood-Urine Negative /ul (Negative); Protein-Dipstick Negative (Negative); Urine Bilirubin Dipstick Negative (Negative); Urine Clarity Clear (Clear); Urine Urobilinogen Normal (Normal)
[2020-06-30 13:37] LABS: D-Dimer Quantitative (DVT/PE) 1.19 FEU/ug/m (0.27-0.49)
== END ==
PROVIDERS: PCP Internal Medicine; Referring Provider Internal Medicine; Visit Provider Internal Medicine
DX: R74.8 Abnormal levels of other serum enzymes (principal); R79.9 Abnormal finding of blood chemistry, unspecified
CPT/HCPCS: 36415; 80053; 81002; 84145; 85025; 85379; 85652; 86140; 87086; 87088; 87186

== ENCOUNTER → 2020-08-08 10:02 | Outpatient (CLI) | payer OTHER, SELFPAY ==
[2020-08-08 11:32] LABS: AST(SGOT) 41 U/L (15-37); Alanine Aminotransfer ALT/SGPT 79 U/L (13-56); Albumin, Serum 3.7 g/dL (3.2-5.0); Alkaline Phosphatase 83 U/L (45-117); Bilirubin, Direct 0.12 mg/dL (0.00-0.30); Globulin 3.7 g/dL (2.2-4.2); Protein, Total 7.4 g/dL (6.4-8.2)
== END ==
PROVIDERS: PCP Internal Medicine; Referring Provider Internal Medicine; Visit Provider Internal Medicine
DX: R79.89 Other specified abnormal findings of blood chemistry (principal); R79.82 Elevated C-reactive protein (CRP)
CPT/HCPCS: 36415; 80076; 86141

== ENCOUNTER → 2021-02-19 12:21 | Outpatient (CLI) | payer OTHER, SELFPAY ==
[2020-03-07 11:31] VITALS: BMI 35.3
[2020-06-26 12:43] VITALS: BMI 35.2
[2021-02-19 13:18] LABS: Microalbumin,Random Urine 9.9 mg/L (NO RANGE EST.); Microalbumin:Creatinine Ratio 10.2 mg/g CRE (<30 mg/g CRE)
[2021-02-19 13:22] LABS: Vitamin D,25 Hydroxy 53.1 ng/mL
[2021-02-19 13:26] LABS: Hemoglobin A1c 5.6 % (3.8-5.6)
== END ==
PROVIDERS: PCP Internal Medicine; Referring Provider Internal Medicine; Visit Provider Internal Medicine
DX: E78.00 Pure hypercholesterolemia, unspecified (principal); E55.9 Vitamin D deficiency, unspecified; R73.09 Other abnormal glucose
CPT/HCPCS: 36415; 82043; 82306; 82570; 83036; 86140

== ENCOUNTER → 2021-03-17 20:00 | Outpatient (CLI) | payer OTHER, SELFPAY | PROVIDERS: PCP Internal Medicine; Referring Provider Internal Medicine; Visit Provider Internal Medicine | DX: G47.33 Obstructive sleep apnea (adult) (pediatric) (principal) | CPT/HCPCS: 95810 ==

== ENCOUNTER → 2021-04-05 | Outpatient (CLI) | payer OTHER, SELFPAY ==
[2021-04-05 13:14] LABS: Mucous, Urine 0 SEEN /hpf (<or=2+); Red Blood Cells-Urine 0 SEEN /hpf (0-5)
[2021-04-05 13:25] LABS: Color, Urine Straw (Yellow); Glucose, Dipstick Normal (Normal); Ketone-Dipstick Negative (Negative); Leukocyte Esterase-Dipstick 100 /ul (Negative); Nitrite-Dipstick Negative (Negative); Occult Blood-Urine Negative /ul (Negative); Protein-Dipstick Negative (Negative); Urine Bilirubin Dipstick Negative (Negative); Urine Clarity Clear (Clear); Urine Urobilinogen Normal (Normal); Urine pH 6.5 (5.0 - 8.0)
[2021-04-05 13:30] LABS: Bacteria RARE /hpf (None Seen); Squamous Epithelial Cells - UA 0-5 SEEN /hpf (5-10); White Blood Cells 0-5 SEEN /hpf (0-5)
== END | disposition home or self-care (01) ==
PROVIDERS: PCP Internal Medicine; Referring Provider Physician Assistant Surgical; Visit Provider Physician Assistant Surgical
DX: R39.15 Urgency of urination (principal)
CPT/HCPCS: 81001; 87086; 87088; 87186

== ENCOUNTER → 2021-05-20 08:56 | Outpatient (CLI) | payer OTHER, SELFPAY ==
--- NOTE | 2021-05-20 09:00 | BI_ITS ---
MAMMOGRAPHY - BILATERAL SCREENING REASON FOR EXAM: Female, 56 years old. Routine annual screening examination. PERTINENT HISTORY: Mother with breast cancer. TECHNIQUE: Digital bilateral breast nhung (3D mammographic acquisition) in the CC and MLO projections. 2-D mediolateral oblique (MLO) and craniocaudad (CC) views of both breasts were obtained. CAD: Full Field Digital Mammography with Computer Added Detection was performed. COMPARISON: Comparison is made with prior study dated 03/17/2020 and 05/08/2018. FINDINGS: Breast Composition: The breasts are heterogeneously dense, which may obscure small masses. There are no dominant masses or suspicious calcifications. Stable benign-appearing bilateral axillary No other significant abnormalities are identified. There has been no significant change since the prior study. BI/SCRN MAMM (CAD)W/NHUNG BILAT IMPRESSION: Stable bilateral screening mammogram. Yearly follow-up mammogram recommended. (A) ASSESSMENT CATEGORY: BIRADS Category 2: Benign. A letter regarding these results will be sent to the patient by the facility within 30 days. Approximately 10% of breast cancers are not detected by mammography. A normal mammogram should not delay biopsy of a clinically suspicious abnormality. [id number] Electronically Signed: Car Pizano MD at 10:51 EST , Service support ,
== END ==
PROVIDERS: PCP Internal Medicine; Referring Provider Internal Medicine; Visit Provider Internal Medicine
DX: Z12.31 Encounter for screening mammogram for malignant neoplasm of breast (principal); M85.80 Other specified disorders of bone density and structure, unspecified site
CPT/HCPCS: 77063; 77067

== ENCOUNTER → 2021-06-28 | Outpatient (CLI) | payer OTHER, SELFPAY ==
[2021-06-28 10:55] LABS: Mucous, Urine 0 SEEN /hpf (<or=2+)
[2021-06-28 11:15] LABS: Color, Urine Yellow (Yellow); Glucose, Dipstick Normal (Normal); Ketone-Dipstick Negative (Negative); Leukocyte Esterase-Dipstick 500 /ul (Negative); Nitrite-Dipstick Negative (Negative); Occult Blood-Urine 250 /ul (Negative); Protein-Dipstick 100 mg/dl (Negative); Specific Gravity, Urine 1.025 (1.002-1.030); Urine Bilirubin Dipstick Negative (Negative); Urine Clarity Sl. Cloudy (Clear); Urine Urobilinogen Normal (Normal)
[2021-06-28 11:36] LABS: Bacteria 2+ /hpf (None Seen); Red Blood Cells-Urine 10-25 SEEN /hpf (0-5); Squamous Epithelial Cells - UA 0-5 SEEN /hpf (5-10); White Blood Cells >100 SEEN /hpf (0-5)
== END | disposition home or self-care (01) ==
LOC: LABSPEC 10:17
PROVIDERS: PCP Internal Medicine; Visit Provider Physician Assistant
DX: R30.9 Painful micturition, unspecified (principal)
CPT/HCPCS: 81001; 87086; 87088; 87186

== ENCOUNTER 2021-08-27 11:30 | Outpatient (CLI) | payer OTHER, SELFPAY ==
[2021-08-27 13:05] LABS: Vitamin D,25 Hydroxy 38.3 ng/mL
[2021-08-27 13:19] LABS: Thyroid Stim Hormone (TSH) 1.86 uIU/mL (0.358-3.74)
== END 2021-08-27 23:59 | disposition home or self-care (01) ==
LOC: LAB 11:32
PROVIDERS: PCP Internal Medicine; Visit Provider Internal Medicine
DX: E55.9 Vitamin D deficiency, unspecified (principal); R73.09 Other abnormal glucose
CPT/HCPCS: 82306; 84443

== ENCOUNTER → 2022-10-03 | Outpatient (CLI) | payer OTHER, SELFPAY ==
--- NOTE | 2022-10-03 14:42 | BI_ITS ---
MAMMOGRAPHY - BILATERAL SCREENING REASON FOR EXAM: Female, 57 years old. Routine annual screening examination. PERTINENT HISTORY: Mother with breast cancer. TECHNIQUE: Digital bilateral breast nhung (3D mammographic acquisition) in the CC and MLO projections. 2-D mediolateral oblique (MLO) and craniocaudad (CC) views of both breasts were obtained. CAD: Full Field Digital Mammography with Computer Added Detection was performed. COMPARISON: Comparison is made with prior study dated May 20, 2021 and March 17, 2020. FINDINGS: Breast Composition: The breasts are heterogeneously dense, which may obscure small masses. There are no dominant masses or suspicious calcifications. Stable benign-appearing bilateral axillary lymph nodes. No other significant abnormalities are identified. There has been no significant change since the prior study. BI/SCRN MAMM (CAD)W/NHUNG BILAT IMPRESSION: Stable bilateral screening mammogram. Yearly follow-up mammogram recommended. (A) ASSESSMENT CATEGORY: BIRADS Category 2: Benign. A letter regarding these results will be sent to the patient by the facility within 30 days. Approximately 10% of breast cancers are not detected by mammography. A normal mammogram should not delay biopsy of a clinically suspicious abnormality. [id number] Electronically Signed: Car Pizano MD at 15:34 EDT ,
== END | disposition home or self-care (01) ==
LOC: OPBI 14:38
PROVIDERS: PCP Internal Medicine; Visit Provider Internal Medicine
DX: Z12.31 Encounter for screening mammogram for malignant neoplasm of breast (principal)
CPT/HCPCS: 77063; 77067

== ENCOUNTER → 2023-01-12 | Outpatient (CLI) | payer OTHER, SELFPAY ==
[2023-01-12 10:13] LABS: Bacteria 0 SEEN /hpf (None Seen); Mucous, Urine 0 SEEN /hpf (<or=2+); Red Blood Cells-Urine 0 SEEN /hpf (0-5); White Blood Cells 0 SEEN /hpf (0-5)
[2023-01-12 12:14] LABS: Absolute Lymphocyte Count 1.66 X10^3/uL (0.83-4.51); Absolute Neutrophil Count 4.4 X10^3/uL (2.0-7.7); Basophil# 0.02 X10^3/uL; Basophil% 0.3 % (0-1); Color, Urine Yellow (Yellow); Eosinophil# 0.27 X10^3/uL; Eosinophils% 3.9 % (0-5); Glucose, Dipstick Normal (Normal); Hematocrit 45.8 % (37-47); Hemoglobin 14.8 g/dL (12.0-15.0); Ketone-Dipstick Negative (Negative); Leukocyte Esterase-Dipstick Negative /ul (Negative); Lymphocyte # 1.66 X10^3/ul (0.83-4.51); Mean Corp Hgb Conc 32.3 g/dL (32-36); Mean Corpuscular Hgb 29.4 pg (27.0-32.0); Mean Corpuscular Volume 91.1 fL (81-99); Mean Platelet Vol. 10.4 fl (6.2-12.0); Monocyte# 0.53 X10^3/uL; Monocyte% 7.7 % (0-10); NRBC Flagged by Analyzer 0 % (0-5); Neutrophil # 4.41 X10^3/uL (2.7-7.7); Neutrophil % 63.7 % (47-70); Nitrite-Dipstick Negative (Negative); Occult Blood-Urine Negative /ul (Negative); Platelet Count 232 K/mm3 (150-450); Protein-Dipstick Negative (Negative); RBC Distribution Width CV 12.8 % (11.6-14.6); RBC Distribution Width SD 42.3 fl (35.1-43.9); Red Blood Count 5.03 M/mm3 (4.2-5.4); Specific Gravity, Urine 1.015 (1.002-1.030); Urine Bilirubin Dipstick Negative (Negative); Urine Clarity Clear (Clear); Urine Urobilinogen Normal (Normal); Urine pH 6.5 (5.0 - 8.0); White Blood Count 6.9 K/mm3 (4.4-11.0)
[2023-01-12 12:28] LABS: Squamous Epithelial Cells - UA 0-5 SEEN /hpf (5-10)
[2023-01-12 12:52] LABS: ALB/GLOB Ratio 0.9 RATIO (0.9-2.4); AST(SGOT) 28 U/L (15-37); Alanine Aminotransfer ALT/SGPT 47 U/L (13-56); Albumin, Serum 3.6 g/dL (3.2-5.0); Alkaline Phosphatase 80 U/L (45-117); Anion Gap 8 (5-15); BUN 15 mg/dL (7-18); BUN/Creat Ratio 19.6 RATIO (10-20); Calcium,Total 8.6 mg/dL (8.5-10.1); Chloride 105 mmol/L (98-107); Cholesterol 212 mg/dL (200); Creatinine, Serum 0.77 mg/dL (0.55-1.02); EST Glomerular Filtration Rate 82 mL/min (>60); Est Glom Filt Rate - Afr Amer 99 mL/min (>60); Glucose 97 mg/dL (74-106); High Density Lipoprotein 50 mg/dL; Potassium 4.3 mmol/L (3.5-5.1); Protein, Total 7.6 g/dL (6.4-8.2); Sodium Level 137 mmol/L (136-145); Thyroid Stim Hormone (TSH) 2.63 uIU/mL (0.358-3.74); Triglycerides 134 mg/dL; Very Low Density Lipoprotein 27 mg/dL (5-40)
[2023-01-12 14:47] LABS: Microalbumin,Random Urine 5.8 mg/L (NO RANGE EST.); Microalbumin:Creatinine Ratio 7.1 mg/g CRE (<30 mg/g CRE)
== END | disposition home or self-care (01) ==
LOC: MTLAB 10:10
PROVIDERS: PCP Internal Medicine; Referring Provider Internal Medicine; Visit Provider Internal Medicine
DX: E78.2 Mixed hyperlipidemia (principal); E55.9 Vitamin D deficiency, unspecified; R73.09 Other abnormal glucose
CPT/HCPCS: 36415; 80053; 80061; 81001; 82043; 82306; 82570; 84443; 85025

== ENCOUNTER → 2024-02-12 | Outpatient (CLI) | payer OTHER, SELFPAY ==
[2024-02-12 11:41] LABS: Bacteria 0 SEEN /hpf (None Seen); Mucous, Urine 0 SEEN /hpf (<or=2+); Red Blood Cells-Urine 0 SEEN /hpf (0-5); White Blood Cells 0 SEEN /hpf (0-5)
[2024-02-12 12:19] LABS: Absolute Lymphocyte Count 2.22 X10^3/uL (0.83-4.51); Absolute Neutrophil Count 6.3 X10^3/uL (2.0-7.7); Basophil# 0.03 X10^3/uL; Basophil% 0.3 % (0-1); Eosinophil# 0.24 X10^3/uL; Eosinophils% 2.6 % (0-5); Hematocrit 45.2 % (37-47); Hemoglobin 14.7 g/dL (12.0-15.0); Lymphocyte # 2.22 X10^3/ul (0.83-4.51); Lymphocyte % 23.6 % (19-41); Mean Corp Hgb Conc 32.5 g/dL (32-36); Mean Corpuscular Hgb 28.3 pg (27.0-32.0); Mean Corpuscular Volume 87.1 fL (81-99); Mean Platelet Vol. 10.2 fl (6.2-12.0); Monocyte% 6.4 % (0-10); NRBC Flagged by Analyzer 0 % (0-5); Neutrophil # 6.26 X10^3/uL (2.7-7.7); Neutrophil % 66.6 % (47-70); Platelet Count 238 K/mm3 (150-450); RBC Distribution Width CV 12.9 % (11.6-14.6); RBC Distribution Width SD 40.8 fl (35.1-43.9); Red Blood Count 5.19 M/mm3 (4.2-5.4); White Blood Count 9.4 K/mm3 (4.4-11.0)
[2024-02-12 12:24] LABS: Color, Urine Yellow (Yellow); Glucose, Dipstick Normal (Normal); Ketone-Dipstick Negative (Negative); Leukocyte Esterase-Dipstick Negative /ul (Negative); Nitrite-Dipstick Negative (Negative); Occult Blood-Urine Negative /ul (Negative); Protein-Dipstick Negative (Negative); Urine Bilirubin Dipstick Negative (Negative); Urine Clarity Sl. Cloudy (Clear); Urine Urobilinogen Normal (Normal)
[2024-02-12 12:32] LABS: Squamous Epithelial Cells - UA 0-5 SEEN /hpf (5-10)
[2024-02-12 12:46] LABS: ALB/GLOB Ratio 0.9 RATIO (0.9-2.4); AST(SGOT) 35 U/L (15-37); Alanine Aminotransfer ALT/SGPT 44 U/L (13-56); Albumin, Serum 3.5 g/dL (3.2-5.0); Alkaline Phosphatase 94 U/L (45-117); Anion Gap 4 (5-15); BUN 12 mg/dL (7-18); BUN/Creat Ratio 15.4 RATIO (10-20); Calcium,Total 8.9 mg/dL (8.5-10.1); Chloride 101 mmol/L (98-107); Cholesterol 220 mg/dL (200); Creatinine, Serum 0.78 mg/dL (0.55-1.02); EST Glomerular Filtration Rate 80 mL/min (>60); Est Glom Filt Rate - Afr Amer 97 mL/min (>60); Glucose 92 mg/dL (74-106); High Density Lipoprotein 46 mg/dL; Potassium 4.3 mmol/L (3.5-5.1); Protein, Total 7.5 g/dL (6.4-8.2); Sodium Level 134 mmol/L (136-145); Triglycerides 183 mg/dL; Very Low Density Lipoprotein 37 mg/dL (5-40)
[2024-02-12 12:48] LABS: Vitamin D,25 Hydroxy 44.3 ng/mL
[2024-02-12 13:00] LABS: Microalbumin,Random Urine < 5.0 mg/L (NO RANGE EST.)
[2024-02-14 13:38] LABS: Thyroid Stim Hormone (TSH) 2.99 uIU/mL (0.358-3.74)
== END | disposition home or self-care (01) ==
PROVIDERS: PCP Internal Medicine; Referring Provider Internal Medicine; Visit Provider Internal Medicine
DX: E55.9 Vitamin D deficiency, unspecified (principal); E78.2 Mixed hyperlipidemia; I10 Essential (primary) hypertension
CPT/HCPCS: 36415; 80053; 80061; 81001; 82043; 82306; 82570; 84443; 85025

== ENCOUNTER 2024-06-04 05:19 | Emergency (ER) | payer OTHER, SELFPAY ==
[2024-06-04 05:22] VITALS: BP 168/94; PULSE 84; RESP 18; TEMP 36.6; O2SAT 93; BMI 35.4
--- NOTE | 2024-06-04 05:53 | CT_ITS ---
INDICATION: Chest/abdominal pain EXAMINATION: CTA CHEST, ABDOMEN AND PELVIS WITH CONTRAST - TECHNIQUE: A CTA of the chest, abdomen, and pelvis is obtained with sagittal and coronal reconstructed MIP views. Three-dimensional surface rendered sequence of the thoracic and abdominal aorta was obtained. A radiation dose optimization technique was used for this scan. 100 mL of Isovue-370. Oral contrast: None. COMPARISON: None. FINDINGS: CT CHEST: THORACIC AORTA: No atheromatous disease, no aneurysmal changes or dissection. ABDOMINAL AORTA: No aneurysm or dissection. No significant atheromatous disease. The iliac arteries are unremarkable. LUNGS: The lungs are well-expanded without acute or chronic changes. No effusions or pneumothorax. MEDIASTINUM: The thyroid gland is normal. No mediastinal or hilar adenopathy. HEART: Heart is normal size. No pericardial effusion. No CAD. CT ABDOMEN AND PELVIS: LIVER: The liver enhances homogeneously. Small enhancing nodule appears to be within the distal right lobe of the liver measuring approximately 1.4 cm in size. There is diffuse decreased attenuation liver suggesting hepatic steatosis. GALLBLADDER: The CBD is normal. Normal gallbladder. SPLEEN: Normal. PANCREAS: No masses or inflammation. ADRENAL GLANDS: Normal. KIDNEYS AND URETERS: The kidneys both enhance appropriately. There are normal size and shape. No hydronephrosis or nephrolithiasis. No renal masses or cysts. STOMACH: Normal. There is a small hiatal hernia. SMALL BOWEL: No abnormal distention of the small bowel. 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 No ascites. COLON: No significant diverticulosis or masses. Mostly colon is nondistended. There is questionable thickening of the pratt of the colon particularly transverse colon and descending colon suggesting possible infectious or inflammatory colitis. There is also some thickening of the pratt of the the hepatic flexure of the colon. APPENDIX: The appendix is visualized and normal. IVC: Normal. RETROPERITONEUM: No retroperitoneal lymphadenopathy. PELVIC STRUCTURES: Urinary bladder wall is abnormally thickened measuring approximately 9 mm in thickness. SOFT TISSUES ABDOMEN: There is a small umbilical hernia containing fat. SOFT TISSUE CHEST: The extrathoracic soft tissues are normal. BONES: No fractures or significant degenerative disease. CT/CTA Chst, Abd, Pel W and/or WO IMPRESSION: 1. No CT evidence for aortic dissection. 2. Findings suggest sequela of infectious or inflammatory colitis. 3. Nonspecific small enhancing hepatic nodule. 4. Hepatic steatosis. 5. 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 6. Abnormal thickening of the urinary bladder wall suggests possible sequela of chronic cystitis. Normal contrast-enhanced CT of the chest. Normal contrast-enhanced CT of the abdomen and pelvis. Electronically Signed: Zeinab Scott MD at 8:01 EST Reading Location ID and State: [facility] / [place] , Service support ,
[2024-06-04] MEDS: 0.9% Normal Saline (1000mL) 1,000 ML 999 ML IV (06:01)
[2024-06-04] MEDS: LORazepam 2 MG/ML Syringe 1 MG IV (06:01)
[2024-06-04 06:04] LABS: Absolute Lymphocyte Count 2.76 X10^3/uL (0.83-4.51); Absolute Neutrophil Count 5.2 X10^3/uL (2.0-7.7); Basophil# 0.03 X10^3/uL; Basophil% 0.3 % (0-1); Eosinophil# 0.15 X10^3/uL; Eosinophils% 1.7 % (0-5); Hematocrit 45.5 % (37-47); Hemoglobin 15.5 g/dL (12.0-15.0); Lymphocyte # 2.76 X10^3/ul (0.83-4.51); Lymphocyte % 30.8 % (19-41); Mean Corp Hgb Conc 34.1 g/dL (32-36); Mean Corpuscular Hgb 29.2 pg (27.0-32.0); Mean Corpuscular Volume 85.8 fL (81-99); Mean Platelet Vol. 10.3 fl (6.2-12.0); Monocyte# 0.78 X10^3/uL; Monocyte% 8.7 % (0-10); NRBC Flagged by Analyzer 0 % (0-5); Neutrophil # 5.19 X10^3/uL (2.7-7.7); Neutrophil % 58.1 % (47-70); Platelet Count 236 K/mm3 (150-450); RBC Distribution Width CV 12.6 % (11.6-14.6); RBC Distribution Width SD 38.9 fl (35.1-43.9)
[2024-06-04 06:22] LABS: Partial Thromboplast Time 28.1 Seconds (24.1-36.2); Prothrombin Time (Protime)PT. 13.2 SECONDS (11.7-14.9)
--- NOTE | 2024-06-04 06:26 | EDS_ITS ---
HPI History of Present Illness Chief Complaint: Abd Pain Informant: patient and spouse/S.O. Narrative Narrative: Patient is a 59-year-old female with past medical history of hypertension and hyperlipidemia. She states that over the past 2 to 3 days she has felt an abnormal sensation in the midportion of her upper abdomen/lower chest. She states it feels more like a pressure sensation and it does not seem to radiate or worsen with motion or ingestion of food. She states she was concerned it could be potential stomach such as gastritis so she improved her diet and drink a great deal of water to see if this would help with there is no improvement. She states that she took her medications last night as she normally does then awoke this morning with the persistent symptoms and noticed her blood pressure was elevated. She states her pressure has not been elevated with the abnormal sensation in the past and therefore with the persistent discomfort and now hypertension she is concerned for potential infection or cardiac event and comes in for evaluation [facility] Medical History (Updated 06/04/24 @ 07:[address] Dany Chavez, DO) History of 2019 novel coronavirus disease (COVID-19) HTN (hypertension) Home Medications ?Medication ?Instructions ?Recorded ?Last Taken ?Type atenolol 50 mg tablet 50 mg PO DAILY supplement 09/03/19 06/22/20 History citalopram 10 mg tablet (Celexa) 10 mg PO DAILY anxiety 03/07/20 06/22/20 History albuterol sulfate 2.5 mg/3 mL 2.5 mg (3 mL) inhalation Q4H PRN 06/25/20 Unknown Rx (0.083 %) solution for nebulization Sob &/Or Wheezing #180 mL albuterol sulfate 90 mcg/actuation 2 puff inhalation Q4H PRN 06/25/20 Unknown Rx aerosol inhaler (Ventolin HFA) shortness of breath or wheezing #18 grams lorazepam 1 mg tablet (Ativan) 1 mg PO TID PRN anxiety 5 days #15 06/04/24 Unknown Rx tabs Allergy/AdvReac Type Severity Reaction Status Date / Time bupivacaine Allergy Anaphylaxis Verified 06/04/24 05:21 cortisone Allergy hives Verified 06/04/24 05:21 Sulfa (Sulfonamide Allergy TOUNGE AND Verified 06/04/24 05:21 Antibiotics) LIP SWELLING triamcinolone (From Kenalog) Allergy Anaphylaxis Verified 06/04/24 05:21 Family History Other No pertinent family history Surgical History Status post neck dissection History of hysterectomy Social History Smoking Status: Never smoker alcohol intake: never ROS ROS ED Constitutional Constitutional ED: Denies chills or fever(s) Eyes Eyes: Denies blurry vision or change in vision ENT ENT ED: Denies rhinorrhea or sore throat Cardiovascular Cardiovascular: Reports chest pain; Denies palpitations or racing heartbeat Respiratory/Chest Respiratory/Chest: Denies cough or dyspnea Gastrointestinal Gastrointestinal: Reports abdominal pain; Denies constipation, diarrhea, nausea or vomiting Genitourinary Genitourinary ED: Denies dysuria or hematuria Musculoskeletal Musculoskeletal: Denies back pain Integumentary Denies rash Neurologic Neurologic: Denies headache(s) Hematologic/Lymphatic Hematologic/Lymphatic: Denies easy bleeding or easy bruising EXAM Physical Exam Const Vital Signs: 06/04/24 05:22 06/04/24 05:29 Temperature 97.9 F Temperature Source Oral Pulse Rate 84 Respiratory Rate 18 Respiratory Effort Normal Non-Labored Respiratory Pattern Normal Blood Pressure 168/94 H Blood Pressure Mean 118 Pulse Ox 93 Oxygen Delivery Method Room Air Positive well nourished, well developed and obese General Appearance ED: well developed; Negative for pallor Nutritional Appearance: obese HEENT HEENT Narrative: Normocephalic atraumatic Eyes PERRL and EOMs intact bilaterally General Eye ED: Negative for scleral icterus Neck supple and no JVD Neck Narrative: No nuchal rigidity or meningeal signs No carotid bruit noted Chest Wall palpation of chest normal Resp normal respiratory effort and clear to auscultation bilaterally Resp Narrative: No nasal flaring retractions tachypnea or accessory muscle use Cardio regular rate and regular rhythm Rate: other Other Details: Regular rate and rhythm without murmurs rubs or gallops Radial and carotid pulses are equal and symmetric GI non-distended and no masses GI Narrative: Abdomen is soft and nondistended with normal active bowel sounds. There is mild pain with palpation in the right upper quadrant and midepigastric region without voluntary guarding or rigidity. No pulsatile mass or fluid wave. There is diastases recti along the midportion of the abdomen just above the umbilicus but no incarcerated hernia noted. Auscultation: normoactive bowel sounds Palpation: soft Back/Spine no CVA tenderness Extremity normal to inspection Extremity Narrative: No asymmetric edema no pitting edema negative Homans' sign bilaterally Neuro oriented x3, CN's II-XII intact bilaterally and no sensory deficits noted Sensorium / Orientation: alert Motor Exam: strength 5/5 throughout Psych Mood & Affect: anxious Skin no rashes or lesions noted and no wounds General Skin Exam: Negative for jaundice or pallor MDM MDM MDM Narrative Medical decision making narrative: Patient presented to the ER hypertensive but otherwise with stable vitals. She reported an abnormal sensation in the upper mid abdomen/lower chest. Differential diagnosis is for acute coronary syndrome versus pancreatitis versus biliary colic versus acute cholecystitis versus colitis versus hiatal hernia versus pulmonary embolus or dissection or aneurysm. Secondary to his basic labs were obtained as well as a CTA of the chest abdomen and pelvis. The patient's initial set of labs revealed no acute findings and her troponin was normal at 6 going against acute coronary syndrome and this correlates with her normal EKG without signs of ischemia. A delta troponin was ordered for the 2-hour saundra to ensure there is no elevation. The patient CTA is still pending. She was given IV fluids as well as a milligram of Ativan and this helped reduce her symptoms and resolve her hypertension. At this time I do feel that if the imaging and delta troponin do not reveal any clinically significant findings the patient will be safe for discharge and can follow-up with her family doctor for further evaluation As the delta troponin and CTA are still pending she will be signed out to the day physician Dr. Mendoza History & Record Review Discussion w/independent historian: Patient and Significant other Lab Data Attestation: I reviewed the patient's lab results. Labs: Laboratory Results - last 24 hr 06/04/24 05:28 WBC 9.0 RBC 5.30 Hgb 15.5 H Hct 45.5 MCV 85.8 MCH 29.2 MCHC 34.1 RDW Std Deviation 38.9 RDW Coeff of Tali 12.6 Plt Count 236 MPV 10.3 Immature Gran % (Auto) 0.400 Neut % (Auto) 58.1 Lymph % (Auto) 30.8 [place] % (Auto) 8.7 Eos % (Auto) 1.7 Baso % (Auto) 0.3 Absolute Neuts (auto) 5.2 Absolute Lymphs (auto) 2.76 Nucleated RBC % 0 PT 13.2 INR 1.0 APTT 28.1 Sodium 138 Potassium 3.2 L Chloride 105 Carbon Dioxide 27.0 Anion Gap 6 BUN 12 Creatinine 0.87 Estim Creat Clear Calc 75.40 Est GFR (MDRD) Af Amer 85 Est GFR (MDRD) Non-Af 70 BUN/Creatinine Ratio 13.8 Glucose 119 H Calcium 9.2 Magnesium 2.1 Total Bilirubin 1.00 Direct Bilirubin 0.19 AST 31 ALT 51 Alkaline Phosphatase 102 Troponin I High Sens 6 Total Protein 7.8 Albumin 3.7 Globulin 4.1 Lipase 74 TSH 4.820 H Discharge Plan Triage Chief Complaint: Abd Pain ED Provider: Dany Chavez Dx/Rx/DC Orders Clinical Impression: Nonspecific abdominal pain, Accelerated hypertension, Anxiety Instructions: Abdominal Pain, ED Anxiety Reaction, ED Hypertension, Established Prescriptions: New lorazepam [Ativan] 1 mg tablet 1 mg PO TID PRN (Reason: anxiety) 5 Days Qty: 15 0RF No Action citalopram [Celexa] 10 mg tablet 10 mg PO DAILY albuterol sulfate [Ventolin HFA] 90 mcg/actuation HFA aerosol inhaler 2 puff INHALATION Q4H PRN (Reason: shortness of breath or wheezing) Qty: 18 6RF albuterol sulfate 2.5 mg /3 mL (0.083 %) solution for nebulization 2.5 mg INHALATION Q4H PRN (Reason: Sob &/Or Wheezing) Qty: 180 3RF atenolol 50 MG tablet 50 mg PO DAILY Primary Care Provider: Eden Woodward Referrals: Eden Wodoward DO [Primary Care Provider] - Activity Restrictions/Additional Instructions: Your workup today did not reveal any signs of acute pancreatitis acute cardiac event blood clot or aneurysm. Continue all of your home medications as directed by your family doctor. You may add the Ativan that was prescribed as needed for breakthrough symptoms. Please follow-up with your family doctor for repeat evaluation and return to the ER should you have any further concerns Print Language: Latvian Disposition Disposition: Home, Self Care
[2024-06-04 06:48] LABS: AST(SGOT) 31 U/L (15-37); Alanine Aminotransfer ALT/SGPT 51 U/L (13-56); Albumin, Serum 3.7 g/dL (3.2-5.0); Alkaline Phosphatase 102 U/L (45-117); Anion Gap 6 (5-15); BUN 12 mg/dL (7-18); BUN/Creat Ratio 13.8 RATIO (10-20); Bilirubin, Direct 0.19 mg/dL (0.00-0.30); Calcium,Total 9.2 mg/dL (8.5-10.1); Chloride 105 mmol/L (98-107); Creatinine, Serum 0.87 mg/dL (0.55-1.02); EST Glomerular Filtration Rate 70 mL/min (>60); Est Glom Filt Rate - Afr Amer 85 mL/min (>60); Globulin 4.1 g/dL (2.2-4.2); Glucose 119 mg/dL (74-106); Lipase 74 U/L (13-75); Magnesium 2.1 mg/dL (1.6-2.6); Potassium 3.2 mmol/L (3.5-5.1); Protein, Total 7.8 g/dL (6.4-8.2); Sodium Level 138 mmol/L (136-145); Troponin-I HS 6 pg/mL (3.0-54.0)
[2024-06-04 07:20] VITALS: BP 125/77; PULSE 61; RESP 16; O2SAT 99
[2024-06-04 08:15] LABS: Troponin-I HS 6 pg/mL (3.0-54.0)
[2024-06-04 08:48] VITALS: BP 149/87; PULSE 75; RESP 18; TEMP 36.4; O2SAT 98
== END 2024-06-04 08:56 | disposition home or self-care (01) ==
PROVIDERS: Emergency Provider Emergency Medicine; PCP Internal Medicine; Visit Provider Emergency Medicine
DX: R10.9 Unspecified abdominal pain (principal); R07.9 Chest pain, unspecified; I10 Essential (primary) hypertension; E78.5 Hyperlipidemia, unspecified; F41.9 Anxiety disorder, unspecified; Z79.899 Other long term (current) drug therapy
CPT/HCPCS: 71275; 74174; 80048; 80076; 83690; 83735; 84443; 84484; 85025; 85610; 85730; 93005; 96361; 96374; 99284; Q9967; A4216

== ENCOUNTER 2024-08-20 10:34 | Day surgery (SDC) | payer BC, SELFPAY ==
--- NOTE | 2024-08-16 13:28 | PAT.ANESEVAL ---
Pre-Assessment Diagnosis/Proposed Procedure Planned Operative Procedure(s): CSCOPE Anesthesia History Anesthesia History - strapper and buffer: Anesthesia History - strapper and buffer Hx Hospitalization No 08/16/24 12:18 Any Problems With Anesthesia No 08/16/24 12:18 Cholinesterase deficiency No 08/16/24 12:18 You/Your Family Experience No 08/16/24 12:18 fever (hyperthermia) with Relationship Recent Exposure to Contagious No 04/05/21 10:33 Disease Does patient have nerve No 08/16/24 12:18 stimulator Patient instructed to have device shut off --Does patient have Pacemaker or ICD? When Was Last Pacemaker Check QUESTION #4 FULL TEXT: You/Your Family Experience fever (hyperthermia) with Anesthesia Last Oral Intake Last Oral intake: Last Oral Intake NPO since Meds taken in AM with sips of water? Meds patient instructed to take am of surgery PONV PONV - strapper and buffer: PONV - strapper and buffer Female Yes 08/16/24 12:18 HX of Motion Sickness Yes 08/16/24 12:18 HX of N/V After Surgery No 08/16/24 12:18 Non-Smoker Yes 08/16/24 12:18 Duration of Surgery greater No 08/16/24 12:18 than 60 minutes Number of Risk Factors 3 08/16/24 12:18 PONV Score Moderate Risk 08/16/24 12:18 Height & Weight Height & Weight: Anesthesia: Height & Weight Height 5 ft 4 in 06/04/24 05:22 Respiratory Assessment Respiratory Assessment - strapper and buffer: Respiratory Tract Infection Hx - strapper and buffer Hx Respiratory Tract Infection No 08/16/24 12:18 STOP Sleep Apnea STOP Sleep Apnea - strapper and buffer: STOP Sleep Apnea - strapper and buffer Hx Hypertension Yes: CONTROLLED WITH MED 08/16/24 12:18 Hx Sleep Apnea Yes 08/16/24 12:18 CPAP Yes: NON COMPLIANT 08/16/24 12:18 BIPAP No 08/16/24 12:18 Do you snore loudly (louder than talking or can be heard Do you often feel tired/ fatigued/ sleepy during daytime? Has anyone observed you stop breathing during sleep? STOP Results Positive 08/16/24 12:18 QUESTION #5 FULL TEXT : Do you snore loudly (louder than talking or can be heard through closed doors)? Tobacco Use History Tobacco Use History - strapper and buffer: Tobacco Use History - strapper and buffer Tobacco Use Smoking Status Never smoker 08/16/24 12:18 Hx Tobacco Use No 08/16/24 12:18 Years Smoking Packs Smoked per Day Smoking Cessation Date was within the last 15 years Hx Smoking Cessation Date Hx Smoking Cessation Counseling Hematologic Medial History Hematologic Hx - strapper and buffer: Hematologic Medical Hx - animal caregiver Hx of Blood Transfusion No 08/16/24 12:18 Hx of Transfusion in last 3 No 08/16/24 12:18 Months Date of Last Transfusion (if within last 3 months) Ever experience any problems No 08/16/24 12:18 with transfusion(s)? Specify any problems Hx of Preganancy in last 3 No 08/16/24 12:18 Months Nurse Filling Out Transfusion DSCHRIBER 08/16/24 12:18 & Questions: Date: 08/16/24 08/16/24 12:18 Time: 12:20 08/16/24 12:18 Patient unable to answer at this time (ie. confused, unrespo /Reproduction History /Reproductive History - strapper and buffer: /Reproductive Hx- strapper and buffer Hx Now No 08/16/24 12:18 Gestational Age (in weeks): EDC: Hx Hx Para Hx Section SAB No 08/16/24 12:18 [facility] Medical History (Updated 08/16/24 @ 12:26 by Ana Paula Hawthorne) CPAP (continuous positive airway pressure) dependence Skin tag of anus Acute hemorrhoid Wears glasses Post-menopausal Anxiety Arthritis Fatty liver High cholesterol History of hiatal hernia History of IBS Heartburn Non-smoker History of stress test History of 2019 novel coronavirus disease (COVID-19) HTN (hypertension) Home Medications ?Medication ?Instructions ?Recorded ?Last Taken ?Type atenolol 50 mg tablet 50 mg PO DAILY supplement 09/03/19 06/22/20 History citalopram 10 mg tablet (Celexa) 10 mg PO DAILY anxiety 03/07/20 06/22/20 History ascorbic acid (vitamin C) 1,000 mg 1 g PO DAILY 08/16/24 Unknown History tablet (C-1000) cholecalciferol (vitamin D3) 50 50 mcg PO DAILY 08/16/24 Unknown History mcg (2,000 unit) capsule (Vitamin D3) d-mannose 500 mg capsule 500 mg PO DAILY 08/16/24 Unknown History magnesium 250 mg tablet 250 mg PO DAILY 08/16/24 Unknown History zinc gluconate 50 mg tablet 50 mg PO DAILY 08/16/24 Unknown History Allergy/AdvReac Type Severity Reaction Status Date / Time bupivacaine Allergy Anaphylaxis Verified 08/16/24 12:17 cortisone Allergy hives Verified 08/16/24 12:17 Sulfa (Sulfonamide Allergy TOUNGE AND Verified 08/16/24 12:17 Antibiotics) LIP SWELLING triamcinolone (From Kenalog) Allergy Anaphylaxis Verified 08/16/24 12:17 Family History Other No pertinent family history Surgical History (Updated 08/16/24 @ 12:26 by Ana Paula Hawthorne) Hx of neck surgery Hx of colonoscopy History of cystoscopy History of hysterectomy Social History Smoking Status: Never smoker alcohol intake: never Audit: Pertinent Findings Pertinent Findings EKG Perinent findings: 06/04/2024 normal sinus rhythm [address] and T wave abnormality Echo (EF%) pertinent findings: 11/07/2013 EF 60% PA pressure 28 Additional pertinent findings: Bupivacaine is listed as anaphylaxis for allergy Recommendation Anesthesia Recommendation Anesthesia recommendation: OPTIMIZED for anesthesia
[2024-08-20] VITALS (9 sets, daily range): BP systolic 97–143; BP diastolic 65–92; PULSE 62–77; RESP 16; TEMP 36.2–36.8; O2SAT 93–95; BMI 34.4
--- NOTE | 2024-08-20 11:33 | PCM.PRE.AN2 ---
ASA Classification* ASA Classification ASA Classification: 2 Assessment & Plan Anesthesia* Anesthesia Assessment Anesthesia Assessment: Discussed sedation and/or anesthesia options, risks, benefits, and alternatives with patient/parents/legal guardian/POA. Questions invited. The patient/parents/legal guardian/POA seems to understand and agrees to proceed with anesthesia plan. Reviewed the physical assessment, medical history, allergy history and patient home medications list prior to surgery/procedure/anesthetic and documented any changes. Performed airway and anesthesia risk assessments. Anesthesia Type Anesthesia Type: MAC History Source History Obtained from:: Patient and Chart Anesthesia Focused Assessment* Temperature: 97.3 F Pulse Rate: 77 Blood Pressure: 143/92 Respiratory Rate: 16 Pulse Ox: 94 Oxygen Delivery Method: Room Air Airway Assessment Mouth opens: >3 cm Mallampati Score: I Teeth Condition: Caps/Crowns (Patient has a couple crowns on the right side upper and lower molars. They are tight.) Neck Range of motion (ROM): Limited ROM (Slight decrease in extension) Focused Labs Anesthesia Preop lab: CBC WBC 9.0 K/mm3 (4.4-11.0) 06/04/24 05:28 06/04/24 RBC 5.30 M/mm3 (4.2-5.4) 06/04/24 05:28 06/04/24 Hgb 15.5 g/dL (12.0-15.0) H 06/04/24 05:28 06/04/24 Hct 45.5 % (37-47) 06/04/24 05:28 06/04/24 Plt Count 236 K/mm3 (150-450) 06/04/24 05:28 06/04/24 CHEMISTRY Potassium 3.2 mmol/L (3.5-5.1) L 06/04/24 05:28 06/04/24 Sodium 138 mmol/L (136-145) 06/04/24 05:28 06/04/24 Magnesium 2.1 mg/dL (1.6-2.6) 06/04/24 05:28 06/04/24 Phosphorus 3.0 mg/dL (2.5-4.9) 08/27/21 11:44 08/27/21 BUN 12 mg/dL (7-18) 06/04/24 05:28 06/04/24 Creatinine 0.87 mg/dL (0.55-1.02) 06/04/24 05:28 06/04/24 Glucose 119 mg/dL (74-106) H 06/04/24 05:28 06/04/24 TSH 4.820 uIU/mL (0.358-3.740) H 06/04/24 05:28 06/04/24 COAG PT 13.2 SECONDS (11.7-14.9) 06/04/24 05:28 06/04/24 Pre-Assessment Diagnosis/Proposed Procedure Planned Operative Procedure(s): CSCOPE Anesthesia History 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 When Was Last Pacemaker Check QUESTION #4 FULL TEXT: You/Your Family Experience fever (hyperthermia) with Anesthesia Last Oral Intake Last Oral intake: Last Oral Intake NPO since 07:30 08/20/24 10:59 Meds taken in AM with sips of Yes 08/20/24 10:59 water? Meds patient instructed to take am of surgery Any additional information?: Yes NPO since: 09:00 (Patient had water up to 9 AM.) Meds taken in AM with sips of water?: Yes PONV PONV - weaver wire loom: PONV - weaver wire loom Female Yes 08/16/24 12:18 HX of Motion Sickness Yes 08/16/24 12:18 HX of N/V After Surgery No 08/16/24 12:18 Non-Smoker Yes 08/16/24 12:18 Duration of Surgery greater No 08/16/24 12:18 than 60 minutes Number of Risk Factors 3 08/16/24 12:18 PONV Score Moderate Risk 08/16/24 12:18 Height & Weight Height & Weight: Anesthesia: Height & Weight Height 5 ft 4 in 08/20/24 10:59 Weight: 91 kg 08/20/24 10:59 Body Mass Index (BMI) 34.4 08/20/24 10:59 Respiratory Assessment Respiratory Assessment - weaver wire loom: Respiratory Tract Infection Hx - weaver wire loom Hx Respiratory Tract Infection No 08/16/24 12:18 Any additional information?: Yes Hx Respiratory Tract Infection: Yes (Patient had influenza A. Symptoms resolved approximately 2 weeks ago. ) STOP Sleep Apnea STOP Sleep Apnea - weaver wire loom: STOP Sleep Apnea - weaver wire loom Hx Hypertension Yes: CONTROLLED WITH MED 08/16/24 12:18 Hx Sleep Apnea Yes 08/16/24 12:18 CPAP Yes: NON COMPLIANT 08/16/24 12:18 BIPAP No 08/16/24 12:18 Do you snore loudly (louder than talking or can be heard Do you often feel tired/ fatigued/ sleepy during daytime? Has anyone observed you stop breathing during sleep? STOP Results Positive 08/16/24 12:18 QUESTION #5 FULL TEXT : Do you snore loudly (louder than talking or can be heard through closed doors)? Tobacco Use History Tobacco Use History - weaver wire loom: Tobacco Use History - weaver wire loom Tobacco Use Smoking Status Never smoker 08/16/24 12:18 Hx Tobacco Use No 08/16/24 12:18 Years Smoking Packs Smoked per Day Smoking Cessation Date was within the last 15 years Hx Smoking Cessation Date Hx Smoking Cessation Counseling Hematologic Medial History Hematologic Hx - weaver wire loom: Hematologic Medical Hx - physician underwriter Hx of Blood Transfusion No 08/16/24 12:18 Hx of Transfusion in last 3 No 08/16/24 12:18 Months Date of Last Transfusion (if within last 3 months) Ever experience any problems No 08/16/24 12:18 with transfusion(s)? Specify any problems Hx of Preganancy in last 3 No 08/16/24 12:18 Months Nurse Filling Out Transfusion DSCHRIBER 08/16/24 12:18 & Questions: Date: 08/16/24 08/16/24 12:18 Time: 12:20 08/16/24 12:18 Patient unable to answer at this time (ie. confused, unrespo /Reproduction History /Reproductive History - weaver wire loom: /Reproductive Hx- weaver wire loom Hx Now No 08/16/24 12:18 Gestational Age (in weeks): EDC: Hx Hx Para Hx Section SAB No 08/16/24 12:18 PFSH Medical History CPAP (continuous positive airway pressure) dependence Skin tag of anus Acute hemorrhoid Wears glasses Post-menopausal Anxiety Arthritis Fatty liver High cholesterol History of hiatal hernia History of IBS Heartburn Non-smoker History of stress test History of 2019 novel coronavirus disease (COVID-19) HTN (hypertension) Home Medications ?Medication ?Instructions ?Recorded ?Last Taken ?Type atenolol 50 mg tablet 50 mg PO DAILY supplement 09/03/19 08/20/24 History citalopram 10 mg tablet (Celexa) 10 mg PO DAILY anxiety 03/07/20 08/19/24 History ascorbic acid (vitamin C) 1,000 mg 1 g PO DAILY 08/16/24 Unknown History tablet (C-1000) cholecalciferol (vitamin D3) 50 50 mcg PO DAILY 08/16/24 08/19/24 History mcg (2,000 unit) capsule (Vitamin D3) d-mannose 500 mg capsule 1,000 mg PO DAILY 08/16/24 08/19/24 History magnesium 250 mg tablet 250 mg PO DAILY 08/16/24 Unknown History zinc gluconate 50 mg tablet 50 mg PO DAILY 08/16/24 Unknown History Allergy/AdvReac Type Severity Reaction Status Date / Time bupivacaine Allergy Anaphylaxis Verified 08/20/24 11:07 cortisone Allergy hives Verified 08/20/24 11:07 Sulfa (Sulfonamide Allergy TOUNGE AND Verified 08/20/24 11:07 Antibiotics) LIP SWELLING triamcinolone (From Kenalog) Allergy Anaphylaxis Verified 08/20/24 11:07 Family History Other No pertinent family history Surgical History Hx of neck surgery Hx of colonoscopy History of cystoscopy History of hysterectomy Social History Smoking Status: Never smoker alcohol intake: never Review of Systems (Anesthesia) ROS Narrative System reviewed and no additional complaints, except as documented.
--- NOTE | 2024-08-20 12:00 | COLBX_PTH ---
PATIENT: LING LLOYD LOC: EN U#:[id number] AGE/SX: 59/F ROOM: RE08/20/[address]: Dr. Jung Henao DO : 1965 BED: DIS: 08/20/2024 SPEC #: [id number] RECD: 08/21/24 07:24 STATUS: LILI MADINA #: [id number] BRUNILDA: 08/20/24 12:[address]: Jung Henao DEPT: SURGICAL PATHOLOGY RECD BY: Rhianna Pereyra ENTERED: 08/21/24 09:26 SP TYPE: COLON BX OT DR: Dr. Eden Woodward DO Tissues: A - Ileum, NOS B - COLON BIOPSY Procedures: Surgery Specimen Level IV HEADER OPERATION: Colonoscopy with biopsy PRE-OP DIAGNOSIS: Colonic thickening TISSUE SUBMITTED: A- Terminal ileum biopsy, B- Random colon biopsy MICROSCOPIC DIAGNOSIS A. Terminal ileum, biopsy: Fragments of small intestinal mucosa, no pathologic diagnosis. B. Colon, random biopsy: Fragments of colonic mucosa, no pathologic diagnosis. ALEXANDRU. 08/22/2024 MICROSCOPIC DESCRIPTION Slides are reviewed. GROSS DESCRIPTION A. Received in fixative is one container labeled with the patient's name and designated Terminal ileum biopsy. The specimen consists of two irregular fragments of light johnson soft tissue that in aggregate measure 0.5 x 0.2 x 0.1 cm. The specimen is totally submitted in one cassette. B. Received in fixative is one container labeled with the patient's name and designated Random colon biopsy. The specimen consists of multiple irregular fragments of light johnson soft tissue that in aggregate measure 1 x 0.4 x 0.1 cm. The specimen is totally submitted in one cassette. 08/21/2024 TC:4 CPT:85493p9
--- NOTE | 2024-08-20 12:17 | PCM.HP.STD ---
HPI - General General Date of Admission: 08/20/24 Date of Service: 08/20/24 Chief Complaint: colitis HPI Narrative LING LLOYD, is a 59 F who presents for colonoscopy regarding recently diagnosed colitis on the CT scan pelvis. [facility] ED 06.04.24 Pt was hypertensive and diagnosed with colitis by CT. Ativan given to lower BP Given a course of Augmentin and recommended f/u with GI . OV 06.12.24 Pt is having no issues today. She feels her symptoms where related to a UTI. She has some heartburn consistently and knows she a hiatal hernia. Her last colonoscopy was over [address] Alvarenga. She feels she may have a pocket near her anus that stool gets stuck in. She feels it may be a prolapse. She denies constipation, diarrhea, lower abdominal pain, melena or hematochezia. CT abd/pelvis 06.04.24; . No CT evidence for aortic dissection. 2. Findings suggest sequela of infectious or inflammatory colitis. 3. Nonspecific small enhancing hepatic nodule. 4. Hepatic steatosis. 5. 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 6. Abnormal thickening of the urinary bladder wall suggests possible sequela of chronic cystitis. [facility] Medical History CPAP (continuous positive airway pressure) dependence Skin tag of anus Acute hemorrhoid Wears glasses Post-menopausal Anxiety Arthritis Fatty liver High cholesterol History of hiatal hernia History of IBS Heartburn Non-smoker History of stress test History of 2019 novel coronavirus disease (COVID-19) HTN (hypertension) Home Medications ?Medication ?Instructions ?Recorded ?Last Taken ?Type atenolol 50 mg tablet 50 mg PO DAILY supplement 09/03/19 08/20/24 History citalopram 10 mg tablet (Celexa) 10 mg PO DAILY anxiety 03/07/20 08/19/24 History ascorbic acid (vitamin C) 1,000 mg 1 g PO DAILY 08/16/24 Unknown History tablet (C-1000) cholecalciferol (vitamin D3) 50 50 mcg PO DAILY 08/16/24 08/19/24 History mcg (2,000 unit) capsule (Vitamin D3) d-mannose 500 mg capsule 1,000 mg PO DAILY 08/16/24 08/19/24 History magnesium 250 mg tablet 250 mg PO DAILY 08/16/24 Unknown History zinc gluconate 50 mg tablet 50 mg PO DAILY 08/16/24 Unknown History Allergy/AdvReac Type Severity Reaction Status Date / Time bupivacaine Allergy Anaphylaxis Verified 08/20/24 11:07 cortisone Allergy hives Verified 08/20/24 11:07 Sulfa (Sulfonamide Allergy TOUNGE AND Verified 08/20/24 11:07 Antibiotics) LIP SWELLING triamcinolone (From Kenalog) Allergy Anaphylaxis Verified 08/20/24 11:07 Family History Other No pertinent family history Surgical History Hx of neck surgery Hx of colonoscopy History of cystoscopy History of hysterectomy Social History Smoking Status: Never smoker alcohol intake: never ROS Constitutional Constitutional: Denies fatigue, fever(s), poor appetite, weight gain or weight loss Gastrointestinal Gastrointestinal: Denies belching, bloating, change in bowel habits, change in stool character, chewing difficulty, coffee ground emesis, constipation, cramping, diarrhea, dyspepsia, dysphagia, early satiety, excessive flatus, fecal incontinence, heartburn, hematemesis, hematochezia, hemorrhoids, loose stools, melena, nausea, odynophagia, rectal bleeding, tenesmus, vomiting or weight changes Vital Signs Vital Signs Vital Signs: 08/20/24 10:59 08/20/24 10:59 08/20/24 11:47 Temperature 97.3 F L 97.3 F L Temperature Source Temporal Pulse Rate 77 77 Respiratory Rate 16 16 Respiratory Pattern Normal Blood Pressure 143/92 H 143/92 H Blood Pressure Mean 109 Blood Pressure Source Monitor Blood Pressure Position Semi-Fowlers Blood Pressure Location Right Arm Pulse Ox 94 94 Oxygen Delivery Method Room Air Room Air Weight Weight: 200 lb 9.93 oz Body Mass Index (BMI) 34.4 Physical Exam Const alert, oriented x3, no apparent distress and healthy appearing General Appearance: cooperative GI normal to inspection, nondistended, normoactive bowel sounds, soft to palpation, non-tender and non-distended Percussion: normal to percussion Rectal Exam: deferred Assessment & Plan Assessment/Plan (1) Colonic thickening: PLAN: Assessment and Plan Assessment and Plan (1) Colonic thickening: Status: Acute Plan: This is a 60 yo female pt here today for f/u after [facility] ED visit for hypertension and colonic thickening on CT scan. Her symptoms have all resolved now. Last colonoscopy was 20 years ago. She dose have heartburn on a consistent basis. She will undergo both EGD and colonoscopy to assess this. She is agreeable to this. -Colonoscopy -EGD -f/u after procedure (2) GERD (gastroesophageal reflux disease): Status: Acute
--- NOTE | 2024-08-20 12:55 | OP.COLON_ITS ---
Patient Name: Analy Velasco Procedure Date: 08/20/2024 12:12 PM Date of : 1965 Age: 59 Procedure: Colonoscopy Indications: Chronic diarrhea, Abnormal CT of the GI tract Providers: Jung Henao DO Referring MD: Eden Woodward Medicines: Monitored Anesthesia Care Patient Profile: This is a 59 year old female. Refer to note in patient chart for documentation of history and physical. Last Colonoscopy: more than 10 years ago. Complications: No immediate complications. Procedure: Pre-Anesthesia Assessment: - Prior to the procedure, a History and Physical was performed, and patient medications and allergies were reviewed. The patient is competent. The risks and benefits of the procedure and the sedation options and risks were discussed with the patient. All questions were answered and informed consent was obtained. Patient identification and proposed procedure were verified by the physician in the pre-procedure area. Mental Status Examination: alert and oriented. Airway Examination: normal oropharyngeal airway and neck mobility. Respiratory Examination: clear to auscultation. CV Examination: normal. Prophylactic Antibiotics: The patient does not require prophylactic antibiotics. Prior Anticoagulants: The patient has taken no anticoagulant or antiplatelet agents except for NSAID medication. ASA Grade Assessment: II - A patient with mild systemic disease. After reviewing the risks and benefits, the patient was deemed in satisfactory condition to undergo the procedure. The anesthesia plan was to use monitored anesthesia care (MAC). Immediately prior to administration of medications, the patient was re-assessed for adequacy to receive sedatives. The heart rate, respiratory rate, oxygen saturations, blood pressure, adequacy of pulmonary ventilation, and response to care were monitored throughout the procedure. The physical status of the patient was re-assessed after the procedure. After I obtained informed consent, the scope was passed under direct vision. Throughout the procedure, the patient's blood pressure, pulse, and oxygen saturations were monitored continuously. The Colonoscope was introduced through the anus and advanced to the cecum, identified by appendiceal orifice and ileocecal valve. The colonoscopy was performed without difficulty. The patient tolerated the procedure well. The quality of the bowel preparation was adequate. The terminal ileum, ileocecal valve, appendiceal orifice, and rectum were photographed. Scope In: 12:37:29 PM Scope Withdrawal Time 0 hours 6 minutes 57 seconds Scope Out: 12:47:17 PM Total Procedure Duration Time 0 hours 9 minutes 48 seconds Findings: The perianal and digital rectal examinations were normal. Mild rectal prolapse was present. Skin tags were found on perianal exam. An area of mildly congested mucosa was found in the recto-sigmoid colon, in the sigmoid colon and in the descending colon. Biopsies were taken with a cold forceps for histology. Verification of patient identification for the specimen was done. Estimated blood loss was minimal. The terminal ileum appeared normal. Biopsies were taken with a cold forceps for histology. Verification of patient identification for the specimen was done. Estimated blood loss was minimal. Impression: - Rectal prolapse. - Perianal skin tags found on perianal exam. - Congested mucosa in the recto-sigmoid colon, in the sigmoid colon and in the descending colon. Biopsied. - The examined portion of the ileum was normal. Biopsied. Recommendation: - Discharge patient to home. - Resume previous diet. - Continue present medications. - Await pathology results. - Repeat colonoscopy in 5 years for surveillance. Procedure Code(s): --- Professional --- 19895, Colonoscopy, flexible; with biopsy, single or multiple CPT copyright 2021 [employer]. All rights reserved. The codes documented in this report are preliminary and upon ancillary specialist review may be revised to meet current compliance requirements. Jung Henao DO 08/20/2024 12:54:55 PM This report has been signed electronically. Number of Addenda: 0 Note Initiated On: 08/20/2024 12:12 PM
--- NOTE | 2024-08-20 12:55 | OP.CCLET_ITS ---
08/20/2024 Eden Woodward [address] [place] [address] [place] [address] Re : Colonoscopy procedure for [facility] Dear Dr. Woodward This procedure was performed on Tuesday, August 20, 2024. My impressions and recommendations are as follows: Impressions : - Rectal prolapse. - Perianal skin tags found on perianal exam. - Congested mucosa in the recto-sigmoid colon, in the sigmoid colon and in the descending colon. Biopsied. - The examined portion of the ileum was normal. Biopsied. Recommendations : - Discharge patient to home. - Resume previous diet. - Continue present medications. - Await pathology results. - Repeat colonoscopy in 5 years for surveillance. My findings are described in the full procedure note, which is enclosed. If I can be of further assistance, please feel free to contact me at . Sincerely, Jung Henao, 08/20/2024 12:54:55 PM This report has been signed electronically.
--- NOTE | 2024-08-20 12:57 | PCM.POST.ANE ---
Anesthesia: Postop Eval I Current Vital Signs Temperature: 97.2 F Pulse Rate: 64 Blood Pressure: 103/71 Respiratory Rate: 16 Pulse Ox: 93 Oxygen Delivery Method: Room Air Assessment Airway patent: Yes Spontaneous unlabored respirations: Yes Mental status: Asleep nausea: No Vomiting: No Anesthesia Complication: No Fluid Hydration Crystalloid volume administer (ml): 40 Total IV fluid infused: 40 Progress Note Anesthesia document: Postop Eval 1 completed: Yes
--- NOTE | 2024-08-20 13:25 | PCM.POSTANE2 ---
Anesthesia Postop Eval I Sum Postop Eval Completion status Anesthesia document: Postop Eval 1 completed: Yes Anesthesia Postop Eval I Summary Anesthesia Postop Eval I Summary: Anesthesia Postop Eval I: Assessment Summary Airway patent Yes 08/20/24 12:58 [email or web address] Spontaneous unlabored Yes 08/20/24 12:58 [email or web address] respirations Mental status Asleep 08/20/24 12:58 [email or web address] nausea No 08/20/24 12:58 [email or web address] Vomiting No 08/20/24 12:58 [email or web address] Anesthesia Postop Eval I: Fluid Summary Crystalloid volume administer 40 08/20/24 12:58 [email or web address] (ml) Colloids volume administered ( ml) Blood Product volume administered (ml) Total IV fluid infused 40 08/20/24 12:58 [email or web address] Anesthesia Postop Eval I: Summary Notes Anesthesia Complication No 08/20/24 12:58 [email or web address] Anesthesia Complication Comment: Post-operative progress note Anesthesia: Postop Eval II Evaluation Mental status: Awake Pain Level: 1 nausea: No Vomiting: No Complications Anesthesia Complication: No
== END 2024-08-20 13:43 | disposition home or self-care (01) ==
LOC: EN 10:36 → AC 10:38
PROVIDERS: PCP Internal Medicine; Referring Provider Internal Medicine; Visit Provider Internal Medicine Gastroenterology
PROC: 0DJD8ZZ Inspection of Lower Intestinal Tract, Via Natural or Artificial Opening Endoscopic (ICD-10-PCS; CPT 45378; principal; 2024-08-20 11:55)
DX: K52.9 Noninfective gastroenteritis and colitis, unspecified (principal); K62.3 Rectal prolapse; K64.4 Residual hemorrhoidal skin tags; K44.9 Diaphragmatic hernia without obstruction or gangrene; I10 Essential (primary) hypertension; E78.00 Pure hypercholesterolemia, unspecified; Z79.899 Other long term (current) drug therapy
CPT/HCPCS: 45380; 88305; A4216; J2405

== ENCOUNTER → 2024-10-17 | Outpatient (CLI) | payer BC, SELFPAY ==
[2024-10-17 10:36] LABS: Bacteria 0 SEEN /hpf (None Seen); Mucous, Urine 0 SEEN /hpf (<or=2+)
[2024-10-17 12:42] LABS: Absolute Lymphocyte Count 1.86 X10^3/uL (0.83-4.51); Absolute Neutrophil Count 3.6 X10^3/uL (2.0-7.7); Basophil# 0.03 X10^3/uL; Basophil% 0.5 % (0-1); Eosinophil# 0.19 X10^3/uL; Eosinophils% 3.1 % (0-5); Hematocrit 42.9 % (37-47); Hemoglobin 14.5 g/dL (12.0-15.0); Lymphocyte # 1.86 X10^3/ul (0.83-4.51); Lymphocyte % 29.9 % (19-41); Mean Corp Hgb Conc 33.8 g/dL (32-36); Mean Corpuscular Volume 85.8 fL (81-99); Mean Platelet Vol. 10.6 fl (6.2-12.0); Monocyte# 0.49 X10^3/uL; Monocyte% 7.9 % (0-10); NRBC Flagged by Analyzer 0 % (0-5); Neutrophil # 3.63 X10^3/uL (2.7-7.7); Neutrophil % 58.3 % (47-70); Platelet Count 228 K/mm3 (150-450); RBC Distribution Width CV 13.1 % (11.6-14.6); RBC Distribution Width SD 40.6 fl (35.1-43.9); White Blood Count 6.2 K/mm3 (4.4-11.0)
[2024-10-17 12:52] LABS: Color, Urine Yellow (Yellow); Glucose, Dipstick Normal (Normal); Ketone-Dipstick Negative (Negative); Leukocyte Esterase-Dipstick Negative /ul (Negative); Nitrite-Dipstick Negative (Negative); Occult Blood-Urine Negative /ul (Negative); Protein-Dipstick 15 mg/dl (Negative); Urine Bilirubin Dipstick Negative (Negative); Urine Clarity Sl. Cloudy (Clear); Urine Urobilinogen Normal (Normal)
[2024-10-17 13:17] LABS: Hemoglobin A1c 5.8 % (<=5.6)
[2024-10-17 13:26] LABS: Microalbumin,Random Urine < 12.0 mg/L (NO RANGE EST.); Microalbumin:Creatinine Ratio UNABLE TO CALCULATE mg/g CRE
[2024-10-17 13:31] LABS: ALB/GLOB Ratio 1.3 RATIO (0.9-2.4); AST(SGOT) 25 U/L (<=31); Alanine Aminotransfer ALT/SGPT 27 U/L (<=34); Albumin, Serum 4.2 g/dL (3.4-4.8); Alkaline Phosphatase 88 U/L (35-104); Anion Gap 10 (5-15); BUN 14 mg/dL (4-19); BUN/Creat Ratio 20.6 RATIO (10-20); Calcium,Total 9.1 mg/dL (7.6-11.0); Carbon Dioxide 25.2 mmol/L (21.0-32.0); Chloride 104 mmol/L (98-108); Cholesterol 198 mg/dL (<=200); Creatinine, Serum 0.67 mg/dL (0.70-1.20); EST Glomerular Filtration Rate 99 (>60); Globulin 3.2 g/dL (2.2-4.2); Glucose 84 mg/dL (70-99); High Density Lipoprotein 50 mg/dL; Low Density Lipoprotein Calc. 122 mg/dL; Potassium 4.7 mmol/L (3.3-5.1); Protein, Total 7.4 g/dL (5.9-8.4); Sodium Level 139 mmol/L (133-145); Total Bilirubin 0.48 mg/dL (0.00-1.30); Triglycerides 130 mg/dL; Very Low Density Lipoprotein 26 mg/dL (5-40); cholesterol:hdl ratio screen 3.93
[2024-10-17 14:54] LABS: Red Blood Cells-Urine 0-5 SEEN /hpf (0-5); White Blood Cells 0-5 SEEN /hpf (0-5)
[2024-10-17 14:55] LABS: Squamous Epithelial Cells - UA 10-25 SEEN /hpf (5-10)
== END | disposition home or self-care (01) ==
LOC: MTLAB 10:13
PROVIDERS: PCP Internal Medicine; Referring Provider Internal Medicine; Visit Provider Internal Medicine
DX: E78.2 Mixed hyperlipidemia (principal); R73.09 Other abnormal glucose; E55.9 Vitamin D deficiency, unspecified; N30.90 Cystitis, unspecified without hematuria
CPT/HCPCS: 36415; 80053; 80061; 81001; 82043; 82306; 82570; 83036; 84443; 85025

== ENCOUNTER → 2024-10-25 | Outpatient (CLI) | payer BC, SELFPAY ==
--- NOTE | 2024-10-25 12:23 | BI_ITS ---
EXAM: SCRN MAMM (CAD)W/NHUNG BILAT DATE: 10/25/2024 CLINICAL HISTORY: F, Age 59 y/o , SCRN MAMM (CAD)W/NHUNG BILAT History of mother with breast cancer. BREAST CANCER RISK ASSESSMENT: Not assessed TECHNIQUE: Bilateral screening digital breast tomosynthesis with 2D and 3D images. Computer aided detection. COMPARISON: Prior exam(s) dated October 03, 2022.. FINDINGS: TISSUE DENSITY: The breast tissue is extremely dense which lowers the sensitivity of mammography. Bilateral Breast Mammographic Findings: No significant masses, calcifications or other abnormalities are identified. No suspicious masses, areas of developing architectural distortion, or suspicious calcifications. There has been no significant interval change. Stable benign-appearing bilateral axillary lymph nodes. BI/SCRN MAMM (CAD)W/NHUNG BILAT IMPRESSION: OVERALL FINAL ASSESSMENT: BIRADS 2 BENIGN FINDING RECOMMENDATION: Routine annual follow-up in 1 Year A letter with findings and recommendations will be mailed to the patient. Reading Location: [place] [address]
== END | disposition home or self-care (01) ==
LOC: OPBD 12:21
PROVIDERS: PCP Internal Medicine; Referring Provider Internal Medicine; Visit Provider Internal Medicine
DX: Z12.31 Encounter for screening mammogram for malignant neoplasm of breast (principal); Z80.3 Family history of malignant neoplasm of breast
CPT/HCPCS: 77063; 77067

== ENCOUNTER → 2025-06-03 | Outpatient (CLI) | payer BC, SELFPAY ==
[2025-06-03 13:22] LABS: Red Blood Cells-Urine 0 SEEN /hpf (0-5)
[2025-06-03 13:39] LABS: Color, Urine Yellow (Yellow); Glucose, Dipstick Normal (Normal); Hematocrit 44.1 % (37-47); Hemoglobin 15.1 g/dL (12.0-15.0); Immature Granulocytes Count 0.030 X10^3/uL (0.0-0.0); Ketone-Dipstick Negative (Negative); Leukocyte Esterase-Dipstick Negative /ul (Negative); Mean Corp Hgb Conc 34.2 g/dL (32-36); Mean Corpuscular Volume 86.1 fL (81-99); Mean Platelet Vol. 10.0 fl (6.2-12.0); NRBC Flagged by Analyzer 0 % (0-5); Nitrite-Dipstick Negative (Negative); Occult Blood-Urine 10 /ul (Negative); Platelet Count 214 K/mm3 (150-450); Protein-Dipstick 15 mg/dl (Negative); RBC Distribution Width CV 12.5 % (11.6-14.6); RBC Distribution Width SD 39.3 fl (35.1-43.9); Red Blood Count 5.12 M/mm3 (4.2-5.4); Specific Gravity, Urine 1.020 (1.002-1.030); Urine Bilirubin Dipstick Negative (Negative); White Blood Count 8.8 K/mm3 (4.4-11.0)
[2025-06-03 13:48] LABS: Mucous, Urine 1+ /hpf (<or=2+); Squamous Epithelial Cells - UA 0-5 SEEN /hpf (5-10)
[2025-06-03 14:13] LABS: Creatinine, Urine (random) 150.00 mg/dL (28.00-217.00); Microalbumin,Random Urine < 12.0 mg/L (<20 mg/L)
[2025-06-03 14:29] LABS: Cholesterol 222 mg/dL (<=200); Low Density Lipoprotein Calc. 147 mg/dL; Triglycerides 136 mg/dL; Very Low Density Lipoprotein 27 mg/dL (5-40); Vitamin D,25 Hydroxy 35.6 ng/mL (30-100); cholesterol:hdl ratio screen 4.35
[2025-06-03 14:40] LABS: AST(SGOT) 22 U/L (<=31); Alanine Aminotransfer ALT/SGPT 26 U/L (<=34); Albumin, Serum 4.2 g/dL (3.4-4.8); Alkaline Phosphatase 95 U/L (35-104); Anion Gap 10 (5-15); BUN 16 mg/dL (4-19); BUN/Creat Ratio 22.6 RATIO (10-20); Calcium,Total 9.3 mg/dL (7.6-11.0); Carbon Dioxide 25.5 mmol/L (21.0-32.0); Chloride 102 mmol/L (98-108); Globulin 3.4 g/dL (2.2-4.2); Glucose 85 mg/dL (70-99); Potassium 4.3 mmol/L (3.3-5.1)
== END | disposition home or self-care (01) ==
PROVIDERS: PCP Internal Medicine; Referring Provider Internal Medicine; Visit Provider Internal Medicine
DX: E55.9 Vitamin D deficiency, unspecified (principal); R73.09 Other abnormal glucose; E78.2 Mixed hyperlipidemia
CPT/HCPCS: 36415; 80053; 80061; 81001; 82043; 82306; 82570; 83036; 84443; 85025

== ENCOUNTER → 2025-06-18 | Outpatient (CLI) | payer BC, SELFPAY ==
--- NOTE | 2025-06-18 09:13 | BD_ITS ---
PROCEDURE: DEXA BONE DENSITY STUDY 06/18/2025 REASON FOR EXAM: F, age 60 y/o . Postmenopausal. TECHNIQUE: Procedure Code: BDDBD Modality: DX Procedure: DEXA BONE DENSITY STUDY COMPARISON: August 18, 2026. FINDINGS: BMD and T-SCORES Lumbar spine: 0.898 g/cm2, T-score -1.4 Levels: L1 through L4 Change from prior: Loss of 7%. Left femoral neck: 0.549 g/cm2, T-score -2.7 Femoral neck comparison data not recommended for monitoring change. Left total hip: 0.800 g/cm2, T-score -1.2 Change from prior: Loss of 0.6%. Right femoral neck: 0.562 g/cm2, T-score -2.6 Femoral neck comparison data not recommended for monitoring change. Right total hip: 0.773 g/cm2, T-score -1.4 Change from prior: Loss of 2.4%. The World Health Organization has defined the following categories based on bone density: Normal bone density: T-score equal to or greater than -1.0 Osteopenia: T-score between -1.0 and -2.5 Osteoporosis: T-score equal to or less than -2.5 FRAX (or Comparable) Fracture Risk Assessment: 10 Year Probability of Fracture: Major Osteoporotic Fracture: 19% Hip Fracture: 4.3% (Note: FRAX is not to be reported in setting of normal range bone density, osteoporosis on DEXA, known history of osteoporosis, prior osteoporotic hip or vertebral fracture, or for any patient undergoing pharmacological treatment for bone loss.) The National Osteoporosis Foundation (NOF) recommends pharmacological treatment for patients with a FRAX 10-year risk of 3% or higher for a hip fracture, or 20% or higher for a major osteoporotic fracture, to prevent osteoporosis and reduce fracture risk. The patient does meet the pharmacological treatment recommendations for prevention of osteoporosis. BD/Dexa Bone Density Study IMPRESSION: OSTEOPOROSIS. Recommend follow-up as clinically warranted. Reading Location: [place] [address]
== END | disposition home or self-care (01) ==
PROVIDERS: PCP Internal Medicine; Referring Provider Internal Medicine; Visit Provider Internal Medicine
DX: Z78.0 Asymptomatic menopausal state (principal)
CPT/HCPCS: 77080